=== PATIENT | female | born 1950 | race Two or more races ===

== ENCOUNTER 2017-10-10 09:13 | Emergency (ER) | payer MEDICARE, OTHER ==
--- NOTE | 2017-10-10 09:40 | EDM.PDOC ---
<Ivan Garcia - Last Filed: 10/10/17 09:50> ED HPI GENERAL MEDICAL PROBLEM - General Chief Complaint: Cardiovascular Problem Stated Complaint: HIGH BP Time Seen by Provider: 10/10/17 09:40 Source of Information: Reports: Patient History Limitations: Reports: No Limitations - Related Data Allergies Allergy/AdvReac Type Severity Reaction Status Date / Time No Known Allergies Allergy Verified 10/10/17 09:23 Home Meds: Home Meds Lisinopril 10 mg PO DAILY #30 tablet 10/10/17 [Rx] Past Medical History - Past Surgical History GI Surgical History: Reports: Appendectomy Social & Family History - Tobacco Use Smoking Status *Q: Never Smoker - Recreational Drug Use Recreational Drug Use: No EKG INTERPRETATION EKG Date: 10/10/17 Time: 09:45 Rhythm: NSR Rate (Beats/Min): 72 [place]: Normal P-Wave: Enlarged (Suspect left atrial hypertrophy.) QRS: Other (Early R-wave transition consider right ventricular. The pattern.) ST-T: Normal QT: Prolonged (Mildly prolonged.) EKG Interpretation Comments: Borderline ECG Course - Vital Signs Last Recorded V/S: Last Vital Signs Temp 96.7 F 10/10/17 09:20 Pulse 73 10/10/17 12:55 Resp 16 10/10/17 12:55 BP 170/107 H 10/10/17 13:04 Pulse Ox 98 10/10/17 12:55 - Orders/Labs/Meds Labs: Laboratory Tests 10/10/17 10/10/17 10/10/17 Range/Units 11:10 11:10 12:23 WBC 9.19 (3.98-10.04) K/mm3 RBC 5.57 H (3.98-5.22) M/mm3 Hgb 16.8 H (11.2-15.7) gm/L Hct 50.0 H (34.1-44.9) % MCV 89.8 (79.4-94.8) fl MCH 30.2 (25.6-32.2) pg MCHC 33.6 (32.2-35.5) g/dl RDW Std Deviation 46.7 H (36.4-46.3) fL Plt Count 234 (182-369) K/mm3 MPV 11.1 (9.4-12.3) fl Neut % (Auto) 56.3 (34.0-71.1) % Lymph % (Auto) 36.2 (19.3-51.7) % Cherry % (Auto) 5.1 (4.7-12.5) % Eos % (Auto) 1.4 (0.7-5.8) Baso % (Auto) 0.8 (0.1-1.2) % Neut # (Auto) 5.17 (1.56-6.13) K/mm3 Lymph # (Auto) 3.33 (1.18-3.74) K/mm3 Cherry # (Auto) 0.47 H (0.24-0.36) K/mm3 Eos # (Auto) 0.13 (0.04-0.36) K/mm3 Baso # (Auto) 0.07 (0.01-0.08) K/mm3 Sodium 146 H (136-145) mEq/L Potassium 3.8 (3.5-5.1) mEq/L Chloride 108 H (98-107) mEq/L Carbon Dioxide 28 (21-32) mEq/L Anion Gap 13.8 (5-15) BUN 6 L (7-18) mg/dL Creatinine 0.9 (0.55-1.02) mg/dL Est Cr Clr Drug Dosing 56.08 mL/min Estimated GFR (MDRD) > 60 (>60) mL/min BUN/Creatinine Ratio 6.7 L (14-18) Glucose 90 (80-115) mg/dL Calcium 9.4 (8.5-10.1) mg/dL Total Bilirubin 0.9 (0.2-1.0) mg/dL AST 39 H (15-37) U/L ALT 41 (14-59) U/L Alkaline Phosphatase 142 H (46-116) U/L Troponin I < 0.017 (0.00-0.056) ng/mL Total Protein 8.3 H (6.4-8.2) g/dl Albumin 3.8 (3.4-5.0) g/dl Globulin 4.5 gm/dL Albumin/Globulin Ratio 0.8 L (1-2) TSH 3rd Generation 2.852 (0.358-3.74) uIU/mL Urine Color Yellow (Yellow) Urine Appearance Clear (Clear) Urine pH 7.0 (5.0-8.0) Ur Specific [place] 1.015 (1.005-1.030) Urine Protein Negative (Negative) Urine Glucose (UA) Negative (Negative) Urine Ketones Negative (Negative) Urine Occult Blood Negative (Negative) Urine Nitrite Negative (Negative) Urine Bilirubin Negative (Negative) Urine Urobilinogen 0.2 (0.2-1.0) Ur Leukocyte Esterase Trace H (Negative) Urine RBC 0-5 (0-5) /hpf Urine WBC 0-5 (0-5) /hpf Ur Epithelial Cells 0-5 (0-5) /hpf Urine Bacteria Few (FEW) /hpf Urine Mucus Not seen (FEW) /hpf Meds: Medications Discontinued Medications Generic Name Dose Route Start Last Admin Trade Name Isaias PRN Reason Stop Dose Admin Lisinopril 10 mg 10/11/17 12:26 10/10/17 13:04 Prinivil PO 10/11/17 12:27 10 mg DAILY ONE Administration Departure - Departure Disposition: Home, Self-Care 01 Clinical Impression: HTN (hypertension) Qualifiers: Hypertension type: unspecified Qualified Code(s): I10 - Essential (primary) hypertension Prescriptions: Lisinopril 10 mg PO DAILY #30 tablet Instructions: Hypertension, [id number] Forms: ED Department Discharge Additional Instructions: Establish care with a primary care provider at [facility] in [place]. Call and make an appointment to be seen in the next week for full evaluation. EKG did show some soft findings that suggest you've had hypertension for quite some time. Thus I started you on lisinopril 10 mg every day. Modifications to dosage and/or medications may be required. Lifestyle modifications is required including: Increase intake fruits and vegetables, push the water, decreased intake of processed foods and also the fried foods. Exercise 30 minutes every day which would include walking/light weight lifting. Decrease salt intake and caffeine use. Fasting lipids and additional blood work may be required. In addition treatment for anxiety/depression may be required as well. Return to the ED if you develop any new or worsening symptoms. <Tru Malik O - Last Filed: 10/12/17 18:49> ED HPI GENERAL MEDICAL PROBLEM - General Source of Information: Reports: Patient History Limitations: Reports: No Limitations - History of Present Illness INITIAL COMMENTS - FREE TEXT/NARRATIVE: Patient is a 66 y/o female who presents to the E.D. feeling anxious, fatigued, with generalized weakness with high BP. Patient has no prior past medical hx. She checked bp yesterday and was elevated as well. She had similar episode two months ago. States she has noted resting improves all symptoms. Patient takes care of her grand kids and household duties for the family. She denies CP, SOB , N/V, fever, dysuria, back pain, dizziness, or any additional complaints. She does not smoke, take any medications, alcohol use, or have a PCP locally. ED ROS GENERAL - Review of Systems Review Of Systems: See Below Constitutional: Reports: No Symptoms HEENT: Reports: No Symptoms Respiratory: Reports: No Symptoms Cardiovascular: Reports: No Symptoms GI/Abdominal: Reports: No Symptoms : Reports: No Symptoms Musculoskeletal: Reports: No Symptoms Neurological: Reports: No Symptoms Psychiatric: Reports: Anxiety ED EXAM, GENERAL - Physical Exam Exam: See Below Exam Limited By: No Limitations General Appearance: Alert, WD/WN, Anxious Ears: Hearing Grossly Normal Nose: Normal Inspection Throat/Mouth: Normal Voice, No Airway Compromise Neck: Normal Inspection, Supple Respiratory/Chest: No Respiratory Distress, Lungs Clear, Normal Breath Sounds, No Accessory Muscle Use, Chest Non-Tender Cardiovascular: Normal Peripheral Pulses, Regular Rate, Rhythm, No Murmur Peripheral Pulses: 4+: Radial (L), Radial (R) GI/Abdominal: Normal Bowel Sounds, Soft, Non-Tender, No Organomegaly, No Distention Back Exam: Normal Inspection Extremities: Normal Inspection, Non-Tender, No Pedal Edema, Normal Capillary Refill Neurological: Alert, Oriented, CN II-XII Intact, Normal Cognition, No Motor/ Sensory Deficits Psychiatric: Normal Affect, Normal Mood Skin Exam: Warm, Dry, Intact, Normal Color Course - Orders/Labs/Meds Labs: Laboratory Tests 10/10/17 10/10/17 10/10/17 Range/Units 11:10 11:10 12:23 WBC 9.19 (3.98-10.04) K/mm3 RBC 5.57 H (3.98-5.22) M/mm3 Hgb 16.8 H (11.2-15.7) gm/L Hct 50.0 H (34.1-44.9) % MCV 89.8 (79.4-94.8) fl MCH 30.2 (25.6-32.2) pg MCHC 33.6 (32.2-35.5) g/dl RDW Std Deviation 46.7 H (36.4-46.3) fL Plt Count 234 (182-369) K/mm3 MPV 11.1 (9.4-12.3) fl Neut % (Auto) 56.3 (34.0-71.1) % Lymph % (Auto) 36.2 (19.3-51.7) % Cherry % (Auto) 5.1 (4.7-12.5) % Eos % (Auto) 1.4 (0.7-5.8) Baso % (Auto) 0.8 (0.1-1.2) % Neut # (Auto) 5.17 (1.56-6.13) K/mm3 Lymph # (Auto) 3.33 (1.18-3.74) K/mm3 [place] # (Auto) 0.47 H (0.24-0.36) K/mm3 Eos # (Auto) 0.13 (0.04-0.36) K/mm3 Baso # (Auto) 0.07 (0.01-0.08) K/mm3 Sodium 146 H (136-145) mEq/L Potassium 3.8 (3.5-5.1) mEq/L Chloride 108 H (98-107) mEq/L Carbon Dioxide 28 (21-32) mEq/L Anion Gap 13.8 (5-15) BUN 6 L (7-18) mg/dL Creatinine 0.9 (0.55-1.02) mg/dL Est Cr Clr Drug Dosing 56.08 mL/min Estimated GFR (MDRD) > 60 (>60) mL/min BUN/Creatinine Ratio 6.7 L (14-18) Glucose 90 (80-115) mg/dL Calcium 9.4 (8.5-10.1) mg/dL Total Bilirubin 0.9 (0.2-1.0) mg/dL AST 39 H (15-37) U/L ALT 41 (14-59) U/L Alkaline Phosphatase 142 H (46-116) U/L Troponin I < 0.017 (0.00-0.056) ng/mL Total Protein 8.3 H (6.4-8.2) g/dl Albumin 3.8 (3.4-5.0) g/dl Globulin 4.5 gm/dL Albumin/Globulin Ratio 0.8 L (1-2) TSH 3rd Generation 2.852 (0.358-3.74) uIU/mL Urine Color Yellow (Yellow) Urine Appearance Clear (Clear) Urine pH 7.0 (5.0-8.0) Ur Specific [place] 1.015 (1.005-1.030) Urine Protein Negative (Negative) Urine Glucose (UA) Negative (Negative) Urine Ketones Negative (Negative) Urine Occult Blood Negative (Negative) Urine Nitrite Negative (Negative) Urine Bilirubin Negative (Negative) Urine Urobilinogen 0.2 (0.2-1.0) Ur Leukocyte Esterase Trace H (Negative) Urine RBC 0-5 (0-5) /hpf Urine WBC 0-5 (0-5) /hpf Ur Epithelial Cells 0-5 (0-5) /hpf Urine Bacteria Few (FEW) /hpf Urine Mucus Not seen (FEW) /hpf Meds: Medications Discontinued Medications Generic Name Dose Route Start Last Admin Trade Name Freq PRN Reason Stop Dose Admin Lisinopril 10 mg 10/11/17 12:26 10/10/17 13:04 Prinivil PO 10/11/17 12:27 10 mg DAILY ONE Administration - Re-Assessments/Exams Free Text/Narrative Re-Assessment/Exam: I evaluated the patient at 1028. Attending ED provider was not able to see the patient prior. She was in the ER approx hour and a half prior to evaluation. EKG was obtained revealing sinus rhythm with early R-wave transition. Suggesting right ventricular hypertrophy, septal hypertrophy, left atrial hypertrophy, and QT mildly prolonged. No acute ST changes noted. Will obtain basic labs including CBC, chem 14, troponin, TSH, UA, and chest x- ray one view. Chest x-ray reveals slight cardiomegaly. No acute findings noted. Tortuous aorta. Final interpretation is pending. 10/10/17 12:33 Labs reviewed: Sodium 146, potassium 3.8, creatinine 0.9, AG 13.8 , AST mildly elevated at 39, alk phosphatase 142 which is elevated, troponin less than 0.017, TSH 2.85, white blood cell count normal, hemoglobin 16.8, platelet count 234. Patient has not provided a urine sample. Will go ahead and treat the patient for uncontrolled blood pressure. Blood pressures 157/123. Heart rate remains normal. Will start lisinopril 10 mg by mouth every day. She'll see her PCP in the next week or 2 for reevaluation. Suspect patient may have some anxiety and that would require treatment as well. Departure - Departure Time of Disposition: 12:34 Condition: Good
--- NOTE | 2017-10-10 12:17 | CR ---
Chest: Portable view of the chest was obtained. Comparison: No previous study. Heart is enlarged. Tortuous thoracic aorta is seen. Lungs are clear. Scoliosis is present within the spine. Impression: 1. Findings as noted above. Nothing acute is identified. Diagnostic code #2
[2017-10-11] MEDS ORDERED: Lisinopril 10 MG Tab PO ONE (12:26)
== END 2017-10-10 13:00 | disposition home or self-care (01) ==
LOC: JD.ED 09:13
DX: I10 Essential (primary) hypertension (principal); I51.7 Cardiomegaly
CPT/HCPCS: 36415; 71045; 80053; 81001; 84443; 84484; 85025; 93005; 99284; A9270; 99283

== ENCOUNTER 2020-05-31 01:01 | Inpatient (IN) | payer MEDICARE, SELFPAY ==
[2020-05-31] MEDS ORDERED: Sodium Chloride 0.9% 1,000 ML IV ONE (01:11)
--- NOTE | 2020-05-31 01:38 | EDM.PDOC ---
ED HPI GENERAL MEDICAL PROBLEM - General Chief Complaint: Syncope Stated Complaint: [facility] Time Seen by Provider: 05/31/20 01:14 Source of Information: Reports: Patient History Limitations: Reports: Language Barrier (iPad oral communication instructor used) - History of Present Illness INITIAL COMMENTS - FREE TEXT/NARRATIVE: Ms. Morin is a very pleasant 69-year-old woman who is now brought to the ED by EMS after suffering a syncopal episode. According to the patient, she had to urinate. She went to the bathroom, and when she finished, she stood up, and then the next thing she knew, she was on the floor. Her daughter discovered her. She states that she is uninjured, and has no pain, anywhere. She denies feeling lightheaded recently, and denies recent chest pain, dyspnea, or palpitations. The patient states that she vomited 3 days ago, and then was seen at the walk-in clinic yesterday, due to generalized body aches and pains, as well as a [id number] sensation in her groin. She states that a chest x-ray and a test for the SARS-CoV-2 virus were performed, but no blood work or urinalysis. She states that she was told that her chest x-ray was unremarkable, but that she was not told the results of her SARS-CoV-2 virus test. She states that she was told that she has some sort of a whole-body infection, and was prescribed azithromycin. She states that she took 1 dose yesterday, but none today. Here in the ED, the patient's initial BP was found to be depressed at 90/55 with a HR normal at 61 bpm. She is afebrile, saturating 94% on room air. Shortly after arrival, however, her BP decreased to 79/56 with a HR of 62 bpm. Reviewing the patient's medications, I see that she is on lisinopril/HCTZ, but no calcium channel sommer or beta-sommer that would prevent a tachycardic response. The patient states that it is not possible that she took an extra dose of her BP medication. The patient's PCP is KEVIN Clifton. - Related Data Allergies Allergy/AdvReac Type Severity Reaction Status Date / Time levofloxacin [From Levaquin] Allergy Itching Verified 05/31/20 08:48 azithromycin AdvReac Hypotension Verified 05/31/20 11:14 Home Meds: Home Meds atorvaSTATin [Lipitor] 40 mg PO DAILY 05/06/19 [History] Lisinopril/Hydrochlorothiazide [Lisinopril-Hctz 20-12.5 mg Tab] 1 each PO DAILY #0 05/10/19 [Rx] Azithromycin 250 mg PO ASDIRECTED 05/31/20 [History] metFORMIN [Glucophage] 500 mg PO DAILY 05/31/20 [History] Past Medical History Cardiovascular History: Reports: High Cholesterol, Hypertension Genitourinary History: Reports: Renal Calculus Endocrine/Metabolic History: Reports: Diabetes, Type II, Obesity/BMI 30+ - Past Surgical History HEENT Surgical History: Reports: Cataract Surgery (bilateral) GI Surgical History: Reports: Cholecystectomy (1994) Female Surgical History: Reports: Other (See Below) (Ureterolith extraction) Social & Family History - Tobacco Use Smoking Status *Q: Former Smoker Years of Tobacco use: 28 Packs/Tins Daily: 0.2 Month/Year Tobacco Last Used: Quit 2009 - Caffeine Use Caffeine Use: Reports: None - Alcohol Use Alcohol Use History: No - Recreational Drug Use Recreational Drug Use: No - Living Situation & Occupation Living situation: Reports: , with Family (Son + 3 grandkids) Occupation: Retired ED ROS GENERAL - Review of Systems Review Of Systems: Comprehensive ROS is negative, except as noted in HPI. - Physical Exam Exam: See Below Exam Limited By: No Limitations General Appearance: Alert, WD/WN, Other (Appears weak/fatigued) Eye Exam: Bilateral Eye: EOMI, Other (s/p cataract surgery. Lt scleral pigmentation.) Ears: Normal External Exam, Normal Canal, Hearing Grossly Normal, Normal TMs Nose: Normal Inspection, Normal Mucosa, No Blood Throat/Mouth: Normal Inspection, Normal Lips, Normal Teeth, Normal Gums, Normal Oropharynx, Normal Voice, No Airway Compromise Head Exam: Atraumatic, Normocephalic Neck: Normal Inspection, Supple, Non-Tender, Full Range of Motion. No: Lymphadenopathy (L), Lymphadenopathy (R) Respiratory/Chest: No Respiratory Distress, Lungs Clear, Normal Breath Sounds, No Accessory Muscle Use Cardiovascular: Normal Peripheral Pulses, Regular Rate, Rhythm, No Edema, No Gallop, No JVD, No Murmur, No Rub GI/Abdominal: Normal Bowel Sounds, Soft, Non-Tender, No Organomegaly, No Distention, No Abnormal Bruit, No Mass (Female) Exam: Deferred Rectal (Female) Exam: Deferred Neuro Exam (Abbreviated): Alert, Oriented, CN II-XII Intact, Normal Cognition, No Motor/Sensory Deficits Back Exam: Normal Inspection, Full Range of Motion, NT Extremities: Normal Inspection, Normal Range of Motion, No Pedal Edema, Normal Capillary Refill Psychiatric: Normal Affect Skin Exam: Warm, Dry, Intact, Normal Color, No Rash ED CENTRAL LINE INSERTION - Central Line Insertion Central Line Indication: IV access, medication administration (Dopamine, KCl) Site: subclavian (L) Prep: CDC/MBT Guidelines, Sterile Drapes, Chlorhexidine Lumen: triple Gauge: 7Fr Local Anesthesia - Lidocaine (Xylocaine): 1% Plain Local Anesthetic Volume: 2cc Ultrasound guided: No Guidewire and dilator removed intact: Yes Micropuncture kit used: No Complications: No Secured with suture: Yes Post placement confirmation: CXR, all ports aspirated, all ports flushed CXR post-procedure: no pneumothorax, no hemothorax Dressing applied: by provider, op-site dressing EKG INTERPRETATION EKG Date: 05/31/20 Time: 01:38 Rhythm: Other (Sinus bradycardia) Rate (Beats/Min): 59 Campbell: Normal P-Wave: Present QRS: Normal (Early transition) ST-T: Normal QT: Normal Comparison: No Change (10/10/2017) Course - Vital Signs Last Recorded V/S: Last Vital Signs Temp 37.9 C 06/01/20 16:54 Pulse 85 06/01/20 16:00 Resp 22 H 06/01/20 19:40 BP 146/81 H 06/01/20 16:26 Pulse Ox 89 L 06/01/20 20:00 - Orders/Labs/Meds Orders: Medication Orders Acetaminophen (Tylenol) 650 mg PO Q4H PRN PRN Reason: Fever Last Admin: 06/01/20 16:54 Dose: 650 mg Documented by: Admin: 06/01/20 09:26 Dose: 650 mg Documented by: USMAN Dextrose/Water (Dextrose 50% In Water) 50 ml IVPUSH ASDIRECTED PRN PRN Reason: Hypoglycemia Enoxaparin Sodium (Lovenox) 40 mg SUBCUT DAILY [facility] Last Admin: 06/01/20 08:42 Dose: 40 mg Documented by: USMAN Hydralazine HCl (Apresoline) 10 mg IVPUSH Q2H PRN PRN Reason: Hypertension Rosuvastatin Calcium (Crestor) 10 mg PO DAILY [facility] Last Admin: 06/01/20 08:42 Dose: 10 mg Documented by: USMAN Labs: Laboratory Tests 05/31/20 05/31/20 05/31/20 Range/Units 01:45 01:55 02:08 WBC 4.48 (3.98-10.04) K/mm3 RBC 4.44 (3.98-5.22) M/mm3 Hgb 13.2 (11.2-15.7) gm/dl Hct 40.0 (34.1-44.9) % MCV 90.1 (79.4-94.8) fl MCH 29.7 (25.6-32.2) pg MCHC 33.0 (32.2-35.5) g/dl RDW Std Deviation 45.7 (36.4-46.3) fL Plt Count 126 L D (182-369) K/mm3 MPV 12.4 H (9.4-12.3) fl Neutrophils % (Manual) 54 (40-60) % Band Neutrophils % 14 H (0-10) % Lymphocytes % (Manual) 27 (20-40) % Atypical Lymphs % 0 % Monocytes % (Manual) 5 (2-10) % Eosinophils % (Manual) 0 L (0.7-5.8) % Basophils % (Manual) 0 L (0.1-1.2) Platelet Estimate Decreased Plt Morphology Comment Normal RBC Morph Comment Normal PT (9.7-11.7) SECONDS INR APTT (22-31) SECONDS D-Dimer, Quantitative (0.19-0.50) mg/L Puncture Site Lt radial ABG pH 7.35 (7.35-7.45) ABG pCO2 46.1 H (35.0-45.0) mmHg ABG pO2 95.0 (80.0-100.0) mmHg ABG HCO3 25.0 (22.0-26.0) meq/L ABG O2 Saturation 96.4 (96.0-97.0) % ABG Base Excess -0.3 (-2-2.0) Dusty Test Positive O2 Delivery Device Room air Sodium (136-145) mEq/L Potassium (3.5-5.1) mEq/L Chloride (98-107) mEq/L Carbon Dioxide (21-32) mEq/L Anion Gap (5-15) BUN (7-18) mg/dL Creatinine (0.55-1.02) mg/dL Est Cr Clr Drug Dosing Estimated GFR (MDRD) (>60) mL/min BUN/Creatinine Ratio (14-18) Glucose (80-115) mg/dL Hemoglobin A1c (4.50-6.20) % Lactic Acid (0.4-2.0) mmol/L Calcium (8.5-10.1) mg/dL Magnesium (1.8-2.4) mg/dl Total Bilirubin (0.2-1.0) mg/dL AST (15-37) U/L ALT (14-59) U/L Alkaline Phosphatase (46-116) U/L Troponin I (0.00-0.056) ng/mL NT-Pro-B Natriuret Pep (0-125) pg/mL Total Protein (6.4-8.2) g/dl Albumin (3.4-5.0) g/dl Globulin gm/dL Albumin/Globulin Ratio (1-2) TSH 3rd Generation (0.358-3.74) uIU/mL Urine Color (Yellow) Urine Appearance (Clear) Urine pH (5.0-8.0) Ur Specific [place] (1.005-1.030) Urine Protein (Negative) Urine Glucose (UA) (Negative) Urine Ketones (Negative) Urine Occult Blood (Negative) Urine Nitrite (Negative) Urine Bilirubin (Negative) Urine Urobilinogen (0.2-1.0) Ur Leukocyte Esterase (Negative) U Hyaline Cast (Auto) (0-5) /lpf Urine RBC (0-5) /hpf Urine WBC (0-5) /hpf Ur Epithelial Cells (0-5) /hpf Urine Bacteria (FEW) /hpf Urine Mucus (FEW) /hpf SARS Virus RNA (PCR) Positive H (NEGATIVE) 05/31/20 05/31/20 05/31/20 Range/Units 02:08 02:08 02:08 WBC (3.98-10.04) K/mm3 RBC (3.98-5.22) M/mm3 Hgb (11.2-15.7) gm/dl Hct (34.1-44.9) % MCV (79.4-94.8) fl MCH (25.6-32.2) pg MCHC (32.2-35.5) g/dl RDW Std Deviation (36.4-46.3) fL Plt Count (182-369) K/mm3 MPV (9.4-12.3) fl Neutrophils % (Manual) (40-60) % Band Neutrophils % (0-10) % Lymphocytes % (Manual) (20-40) % Atypical Lymphs % % Monocytes % (Manual) (2-10) % Eosinophils % (Manual) (0.7-5.8) % Basophils % (Manual) (0.1-1.2) Platelet Estimate Plt Morphology Comment RBC Morph Comment PT 11.1 (9.7-11.7) SECONDS INR 1.04 APTT 31 (22-31) SECONDS D-Dimer, Quantitative < 0.19 L (0.19-0.50) mg/L Puncture Site ABG pH (7.35-7.45) ABG pCO2 (35.0-45.0) mmHg ABG pO2 (80.0-100.0) mmHg ABG HCO3 (22.0-26.0) meq/L ABG O2 Saturation (96.0-97.0) % ABG Base Excess (-2-2.0) Dusty Test O2 Delivery Device Sodium 138 (136-145) mEq/L Potassium 2.6 L D (3.5-5.1) mEq/L Chloride 99 (98-107) mEq/L Carbon Dioxide 26 (21-32) mEq/L Anion Gap 15.6 H (5-15) BUN 15 (7-18) mg/dL Creatinine 1.6 H (0.55-1.02) mg/dL Est Cr Clr Drug Dosing TNP Estimated GFR (MDRD) 32 (>60) mL/min BUN/Creatinine Ratio 9.4 L (14-18) Glucose 104 (80-115) mg/dL Hemoglobin A1c (4.50-6.20) % Lactic Acid (0.4-2.0) mmol/L Calcium 7.9 L (8.5-10.1) mg/dL Magnesium 2.0 (1.8-2.4) mg/dl Total Bilirubin 0.6 (0.2-1.0) mg/dL AST 29 (15-37) U/L ALT 21 (14-59) U/L Alkaline Phosphatase 81 (46-116) U/L Troponin I < 0.017 (0.00-0.056) ng/mL NT-Pro-B Natriuret Pep 220 H (0-125) pg/mL Total Protein 6.6 (6.4-8.2) g/dl Albumin 3.1 L (3.4-5.0) g/dl Globulin 3.5 gm/dL Albumin/Globulin Ratio 0.9 L (1-2) TSH 3rd Generation (0.358-3.74) uIU/mL Urine Color (Yellow) Urine Appearance (Clear) Urine pH (5.0-8.0) Ur Specific [place] (1.005-1.030) Urine Protein (Negative) Urine Glucose (UA) (Negative) Urine Ketones (Negative) Urine Occult Blood (Negative) Urine Nitrite (Negative) Urine Bilirubin (Negative) Urine Urobilinogen (0.2-1.0) Ur Leukocyte Esterase (Negative) U Hyaline Cast (Auto) (0-5) /lpf Urine RBC (0-5) /hpf Urine WBC (0-5) /hpf Ur Epithelial Cells (0-5) /hpf Urine Bacteria (FEW) /hpf Urine Mucus (FEW) /hpf SARS Virus RNA (PCR) (NEGATIVE) 05/31/20 05/31/20 05/31/20 Range/Units 02:08 02:08 02:08 WBC (3.98-10.04) K/mm3 RBC (3.98-5.22) M/mm3 Hgb (11.2-15.7) gm/dl Hct (34.1-44.9) % MCV (79.4-94.8) fl MCH (25.6-32.2) pg MCHC (32.2-35.5) g/dl RDW Std Deviation (36.4-46.3) fL Plt Count (182-369) K/mm3 MPV (9.4-12.3) fl Neutrophils % (Manual) (40-60) % Band Neutrophils % (0-10) % Lymphocytes % (Manual) (20-40) % Atypical Lymphs % % Monocytes % (Manual) (2-10) % Eosinophils % (Manual) (0.7-5.8) % Basophils % (Manual) (0.1-1.2) Platelet Estimate Plt Morphology Comment RBC Morph Comment PT (9.7-11.7) SECONDS INR APTT (22-31) SECONDS D-Dimer, Quantitative (0.19-0.50) mg/L Puncture Site ABG pH (7.35-7.45) ABG pCO2 (35.0-45.0) mmHg ABG pO2 (80.0-100.0) mmHg ABG HCO3 (22.0-26.0) meq/L ABG O2 Saturation (96.0-97.0) % ABG Base Excess (-2-2.0) Dusty Test O2 Delivery Device Sodium (136-145) mEq/L Potassium (3.5-5.1) mEq/L Chloride (98-107) mEq/L Carbon Dioxide (21-32) mEq/L Anion Gap (5-15) BUN (7-18) mg/dL Creatinine (0.55-1.02) mg/dL Est Cr Clr Drug Dosing Estimated GFR (MDRD) (>60) mL/min BUN/Creatinine Ratio (14-18) Glucose (80-115) mg/dL Hemoglobin A1c 6.00 (4.50-6.20) % Lactic Acid 1.3 (0.4-2.0) mmol/L Calcium (8.5-10.1) mg/dL Magnesium (1.8-2.4) mg/dl Total Bilirubin (0.2-1.0) mg/dL AST (15-37) U/L ALT (14-59) U/L Alkaline Phosphatase (46-116) U/L Troponin I (0.00-0.056) ng/mL NT-Pro-B Natriuret Pep (0-125) pg/mL Total Protein (6.4-8.2) g/dl Albumin (3.4-5.0) g/dl Globulin gm/dL Albumin/Globulin Ratio (1-2) TSH 3rd Generation 4.849 H (0.358-3.74) uIU/mL Urine Color (Yellow) Urine Appearance (Clear) Urine pH (5.0-8.0) Ur Specific [place] (1.005-1.030) Urine Protein (Negative) Urine Glucose (UA) (Negative) Urine Ketones (Negative) Urine Occult Blood (Negative) Urine Nitrite (Negative) Urine Bilirubin (Negative) Urine Urobilinogen (0.2-1.0) Ur Leukocyte Esterase (Negative) U Hyaline Cast (Auto) (0-5) /lpf Urine RBC (0-5) /hpf Urine WBC (0-5) /hpf Ur Epithelial Cells (0-5) /hpf Urine Bacteria (FEW) /hpf Urine Mucus (FEW) /hpf SARS Virus RNA (PCR) (NEGATIVE) 05/31/20 05/31/20 Range/Units 04:20 05:00 WBC (3.98-10.04) K/mm3 RBC (3.98-5.22) M/mm3 Hgb (11.2-15.7) gm/dl Hct (34.1-44.9) % MCV (79.4-94.8) fl MCH (25.6-32.2) pg MCHC (32.2-35.5) g/dl RDW Std Deviation (36.4-46.3) fL Plt Count (182-369) K/mm3 MPV (9.4-12.3) fl Neutrophils % (Manual) (40-60) % Band Neutrophils % (0-10) % Lymphocytes % (Manual) (20-40) % Atypical Lymphs % % Monocytes % (Manual) (2-10) % Eosinophils % (Manual) (0.7-5.8) % Basophils % (Manual) (0.1-1.2) Platelet Estimate Plt Morphology Comment RBC Morph Comment PT (9.7-11.7) SECONDS INR APTT (22-31) SECONDS D-Dimer, Quantitative (0.19-0.50) mg/L Puncture Site ABG pH (7.35-7.45) ABG pCO2 (35.0-45.0) mmHg ABG pO2 (80.0-100.0) mmHg ABG HCO3 (22.0-26.0) meq/L ABG O2 Saturation (96.0-97.0) % ABG Base Excess (-2-2.0) Dusty Test O2 Delivery Device Sodium (136-145) mEq/L Potassium (3.5-5.1) mEq/L Chloride (98-107) mEq/L Carbon Dioxide (21-32) mEq/L Anion Gap (5-15) BUN (7-18) mg/dL Creatinine (0.55-1.02) mg/dL Est Cr Clr Drug Dosing Estimated GFR (MDRD) (>60) mL/min BUN/Creatinine Ratio (14-18) Glucose (80-115) mg/dL Hemoglobin A1c (4.50-6.20) % Lactic Acid (0.4-2.0) mmol/L Calcium (8.5-10.1) mg/dL Magnesium (1.8-2.4) mg/dl Total Bilirubin (0.2-1.0) mg/dL AST (15-37) U/L ALT (14-59) U/L Alkaline Phosphatase (46-116) U/L Troponin I < 0.017 (0.00-0.056) ng/mL NT-Pro-B Natriuret Pep (0-125) pg/mL Total Protein (6.4-8.2) g/dl Albumin (3.4-5.0) g/dl Globulin gm/dL Albumin/Globulin Ratio (1-2) TSH 3rd Generation (0.358-3.74) uIU/mL Urine Color Light yellow (Yellow) Urine Appearance Clear (Clear) Urine pH 6.0 (5.0-8.0) Ur Specific [place] 1.015 (1.005-1.030) Urine Protein Negative (Negative) Urine Glucose (UA) Negative (Negative) Urine Ketones Negative (Negative) Urine Occult Blood Negative (Negative) Urine Nitrite Negative (Negative) Urine Bilirubin Negative (Negative) Urine Urobilinogen 0.2 (0.2-1.0) Ur Leukocyte Esterase Negative (Negative) U Hyaline Cast (Auto) 0-5 (0-5) /lpf Urine RBC 0-5 (0-5) /hpf Urine WBC 0-5 (0-5) /hpf Ur Epithelial Cells 0-5 (0-5) /hpf Urine Bacteria Few (FEW) /hpf Urine Mucus Few (FEW) /hpf SARS Virus RNA (PCR) (NEGATIVE) Meds: Medications Generic Name Dose Route Start Last Admin Trade Name Freq PRN Reason Stop Dose Admin Acetaminophen 650 mg 06/01/20 09:05 06/01/20 16:54 Tylenol PO 650 mg Q4H PRN Administration Fever Dextrose/Water 50 ml 06/01/20 16:34 Dextrose 50% In Water IVPUSH ASDIRECTED PRN Hypoglycemia Enoxaparin Sodium 40 mg 06/01/20 09:00 06/01/20 08:42 Lovenox SUBCUT 40 mg DAILY MARGARITO Administration Hydralazine HCl 10 mg 06/01/20 16:34 Apresoline IVPUSH Q2H PRN Hypertension Rosuvastatin Calcium 10 mg 06/01/20 09:00 06/01/20 08:42 Crestor PO 10 mg DAILY MARGARITO Administration Discontinued Medications Generic Name Dose Route Start Last Admin Trade Name Freq PRN Reason Stop Dose Admin Dextrose/Water 50 ml 05/31/20 10:01 Dextrose 50% In Water IVPUSH ASDIRECTED PRN Hypoglycemia Sodium Chloride 1,000 mls @ 999 mls/hr 05/31/20 01:11 05/31/20 01:12 Normal Saline IV 05/31/20 02:11 999 mls/hr ONETIME ONE Administration Dopamine HCl/Dextrose 400 mg in 250 mls @ 28.125 mls/hr 05/31/20 02:30 05/31/20 02:35 Dopamine In D5w 400 Mg/250 Ml IV 10 mcg/kg/min TITRATE MARGARITO 28.125 mls/hr Administration Protocol 10 MCG/KG/MIN Dopamine HCl/Dextrose 400 mg in 250 mls @ 56.25 mls/hr 05/31/20 03:00 05/31/20 03:09 Dopamine In D5w 400 Mg/250 Ml IV 20 mcg/kg/min TITRATE MARGARITO 56.25 mls/hr Administration Protocol 20 MCG/KG/MIN Potassium Chloride 10 meq/ 100 mls @ 100 mls/hr 05/31/20 03:15 05/31/20 08:49 Premix IV 05/31/20 09:14 Not Given Q1H MARGARITO Dopamine HCl/Dextrose 400 mg in 250 mls @ 42.188 mls/hr 05/31/20 03:15 05/31/20 03:22 Dopamine In D5w 400 Mg/250 Ml IV 15 mcg/kg/min TITRATE MARGARITO 42.188 mls/hr Administration Protocol 15 MCG/KG/MIN Sodium Chloride 1,000 mls @ 75 mls/hr 05/31/20 03:30 09/09/20 03:29 Normal Saline IV 75 mls/hr ASDIRECTED MARGARITO Administration Norepinephrine Bitartrate 4 mg 250 mls @ 26.25 mls/hr 05/31/20 06:00 05/31/20 08:46 / Dextrose/Water IV 0 mcg/min TITRATE MARGARITO 0 mls/hr Titration Protocol 7 MCG/MIN Insulin Human Lispro 0 unit 05/31/20 11:00 06/01/20 13:39 Humalog SUBCUT Not Given QIDACANDBED MARGARITO Protocol Ondansetron HCl 4 mg 05/31/20 03:08 05/31/20 03:13 Zofran IVPUSH 05/31/20 03:09 4 mg ONETIME ONE Administration Potassium Chloride 40 meq 05/31/20 17:00 05/31/20 17:37 Klor-Con M20 PO 05/31/20 17:01 40 meq ONETIME ONE Administration - Re-Assessments/Exams Free Text/Narrative Re-Assessment/Exam: 05/31/20 01:33 As above, the patient suffered a syncopal episode after getting up from urinating. She is uninjured, however, she was hypotensive without tachycardia upon arrival, and has became even more hypotensive. Her physical exam, including her neurologic exam, is unremarkable. She is receiving an IV fluid bolus at present. She reports vomiting 3 days ago, and she was prescribed a Z- Selvin from the walk-in clinic yesterday, after presenting for generalized aches and pains, with tingling and numbness in her groin. She states that she took only 1 dose, yesterday, and none today. I have ordered a work-up that includes blood work, an ABG, 2 sets of blood cultures, a urinalysis by quick catheter, a chest x-ray, an ECG, and a swab for the SARS-CoV-2 virus. 05/31/20 02:06 Portable chest radiograph reviewed. There is mild cardiomegaly, but no pulmonary vascular congestion or pleural effusions to suggest decompensated CHF. Tortuous aorta. No focal infiltrate. No pneumothorax. Thoracic scoliosis noted. Formal read per the Radiologist pending. The patient's ABG represents an acute (uncompensated) primary respiratory acidosis. 05/31/20 02:19 Notified by Jennifer DANIEL that the first liter of IV fluid has finished infusing. Her BP is still depressed at 77/59, with a HR of 57 bpm. Due to the cardiomegaly on her chest x-ray, however, I am concerned that the patient may have a history of CHF, and I am therefore reluctant to infuse too much IV fluid. I will therefore start her on a dopamine drip at 10 mcg/kg/min. 05/31/20 02:31 Notified by Radha DANIEL that the test for the SARS-CoV-2 virus has returned positive. Having COVID-19, we will now need to be even more judicious with IV fluid. 05/31/20 02:59 Despite being on dopamine at 10 mcg/kg/min, the patient's BP is still 72/46 with a HR of 44 bpm. I am concerned that the patient may be developing a heart block. Because of the patient being on dopamine, I had earlier spoken to her, with the assistance of a multi mission helicopter aircrewman, about receiving a central line, with my initial plan of placing a left subclavian triple-lumen catheter, or, if unsuccessful, a right IJ, or, if unsuccessful, a femoral vein line. The patient was agreeable, and has signed a consent. Given her worsening hypotension and bradycardia despite dopamine, however, I think it would be best if I were to place a right IJ Cordis through which a PA catheter and transvenous pacer could be introduced. In the meantime, I have ordered an increase in the patient's dopamine to 20 mcg/kg/min. 05/31/20 03:08 Notified by Ebony DANIEL that the patient was vomiting a few minutes ago. I have ordered 4 mg of IV Zofran. 05/31/20 03:10 The patient's BP is now up to 141/90, with a HR of 83 bpm. I am not sure if it was the vomiting, or the increase in dopamine which precipitated the improvement. The patient's CBC is remarkable for platelets depressed at 126,000, and is otherwise unremarkable. Her CMP is remarkable for a potassium depressed at 2.6, and an anion gap mildly elevated at 15.6, but with a bicarbonate normal at 26. Her Cr is elevated at 1.6, with a BUN normal at 15, and the remainder of her CMP being unremarkable. Her magnesium level is within normal limits at 2.0. Her lactic acid level is within normal limits at 1.3. Her troponin is undetectably low. Her D-dimer is undetectably low. Her coags are within normal limits. The patient's BNP is still pending. A urine sample for urinalysis has not yet been collected. Based on the above, I have ordered KCl 10 mEq IV x 4 to be given. Once a central line is in place, the KCl can be given at 20 mEq/hr. 05/31/20 03:14 The patient's BP is now up to 173/97, with a HR of 96 bpm. I have therefore ordered the dopamine to be decreased to 15 mcg/kg/min. I have also ordered a repeat ECG. 05/31/20 03:43 With the dopamine drip at 15 mcg/kg/min, the patient's BP is now 140/80, with a HR of 108 bpm. I will have the patient's nurse titrate the drip down as tolerated. Her repeat ECG, obtained at 03:16, demonstrates a normal sinus rhythm at 96 bpm. There may be right atrial enlargement. No AV block. There is less than [address] depression in V2V6, but without T wave inversion. There is early transition. There is right axis deviation, but no LVH or RVH. No intraventricular conduction delays. The QTc is prolonged at 531 ms. Because of the improvement in the patient's dynamics, I believe we can forego the Cordis at present and continue with the initial plan of a left subclavian central line. I have ordered a repeat troponin, that we can draw off of the central line blood. 05/31/20 04:00 The patient's BNP is modestly elevated at 220. A urine sample has not yet been collected. 05/31/20 04:59 After a sterile field was established with chlorhexidine and a sterile drape, the area inferior to the left clavicle was locally anesthetized with an infiltrate of 1% lidocaine. A 7 English 3-lumen central line catheter was then placed using the Seldinger technique, with good draw and flush on each of the 3 lumens. The central line was secured with suture at 19 cm, then dressed with Tegaderm with a Biogel. The dressing was dated by Jennifer DANIEL. The patient tolerated the procedure very well. A post-procedure portable chest x-ray has been ordered. The repeat troponin will be drawn off of the central line. 05/31/20 05:34 Post-procedure portable chest x-ray demonstrates the left subclavian central line tip at the junction of the SVC and RA. No pneumothorax. No visible hemothorax. Bilateral lung opacity appears to be increased since the prior portable chest x-ray. Formal read per the Radiologist pending. The patient's urinalysis is unremarkable. 05/31/20 05:50 I spoke at length with the patient's daughter and son in the ED waiting room. The patient's daughter lives in the [facility], but came down recently to help her mother, because she has not been feeling well. She confirmed that the patient was taken to the walk-in clinic yesterday, but first underwent a drive- through COVID testing. They were told that the results would take about 3 or 4 days. They then went to the walk-in clinic and were told that the patient had pneumonia, which is why she was prescribed the azithromycin. The patient's repeat troponin is still undetectably low. 05/31/20 05:57 At present, the patient's BP is 104/71, but she is tachycardic at 122 bpm. I would like to decrease the dopamine, in order to decrease her tachycardia, however, her BP would likely drop too low, therefore I have ordered norepinephrine to be started at 7 mcg/min. As her BP rises, Jennifer DANIEL can decrease the dopamine fairly quickly, then titrate both to arrive at a satisfactory BP and HR. 05/31/20 06:[address] Dozier. He accepted the patient for admission to the ICU. Departure - Departure Time of Disposition: 06:39 Disposition: Admitted As Inpatient 67 Condition: Fair Clinical Impression: COVID-19, Hypotension, Hypokalemia - Discharge Information *PRESCRIPTION DRUG MONITORING PROGRAM REVIEWED*: Not Applicable *COPY OF PRESCRIPTION DRUG MONITORING REPORT IN PATIENT ISI: Not Applicable Sepsis Event Note (ED) - Evaluation Sepsis Screening Result: No Definite Risk
[2020-05-31] MEDS ORDERED: DOPamine/Dextrose 5%-Water 400 MG/250 ML BAG IV SCH ×3 (02:30→03:15)
[2020-05-31] MEDS ORDERED: Ondansetron 4 MG/2 ML SDV IVPUSH ONE (03:08)
[2020-05-31] MEDS: Potassium Chloride 10 MEQ in Premix Bag 1 BAG IV SCH ×5 (03:29→08:49)
[2020-05-31] MEDS ORDERED: Sodium Chloride 0.9% 1,000 ML IV SCH (03:30)
[2020-05-31] MEDS ORDERED: Norepinephrine 4 MG in Dextrose 5% in Water 246 ML IV SCH ×2 (06:00)
--- NOTE | 2020-05-31 06:22 | CR ---
Chest: Portable view of the chest was obtained. Comparison: Prior chest x-ray of 10/10/17. Heart is slightly enlarged. Tortuous thoracic aorta is seen. Lungs are clear with no acute parenchymal change. Scoliosis is noted within the spine. No acute osseous finding is seen. Impression: 1. Findings as noted above. 2. Nothing acute is seen. Diagnostic code #2 This report was dictated in MDT
--- NOTE | 2020-05-31 06:37 | CR ---
Chest: Portable view of the chest was obtained. Comparison: Prior chest x-ray performed earlier on the same day (1:21 AM). Heart is slightly enlarged. Tortuous thoracic aorta is seen. Lungs are clear with no acute parenchymal change. Left-sided subclavian line is seen. Tip lies within the superior vena cava. No pneumothorax is seen. Impression: 1. Left subclavian catheter with tip located within the superior vena cava. 2. Nothing acute is otherwise seen on portable chest x-ray. Diagnostic code #3 This report was dictated in MDT
[2020-05-31] MEDS ORDERED: 50% Dextrose in Water 50 ML Syringe IVPUSH PRN (10:01)
--- NOTE | 2020-05-31 10:02 | PCM.HP.2 ---
H&P History of Present Illness - General Date of Service: 05/31/20 Admit Problem/Dx: Admission Diagnosis/Problem Admission Diagnosis/Problem Hypotension History Limitations: Reports: Language Barrier (Obstetrics Scrub Nurse at bedside) - History of Present Illness Initial Comments - Free Text/Narative: 69-year-old female Tajik-speaking only came to the emergency room after having a syncopal episode. Patient states, through an pound keeper, that she was feeling flushed and feverish last night around 1130 and she got up to go to the bathroom. After urinating she stood up and things became distant and she hit the floor. Patient does not know if she hit her head. Patient denies any headaches or chest pain. Patient's daughter was staying with her last night and heard her fall and came into check on her in the bathroom. Patient remembers hearing her daughter distantly. She was then brought to the emergency room via EMS. Patient denies any pain, shortness of breath, headache, or palpitations. Patient states that she was seen at the clinic a couple days ago secondary to feeling ill with body aches, pain, and vomiting. Patient had a COVID PCR performed that was sent out and a chest x-ray done. Chest x-ray reportedly showed nothing acute and she was started on azithromycin. Patient took her first dose of azithromycin 500 mg at approximately 1500 hours several hours before her syncopal episode. Patient's daughter states she also was given NyQuil the night that she had her syncopal episode. She denies any wheezing, stridor, she was not hypoxic when she got to the emergency department, no hives or rash, no pruritus or flushing, no swollen lips or tongue. In the emergency department her initial blood pressure was 90/35 with a heart rate of 61. Oxygen saturations were 94% on room air. Shortly after arriving to the emergency department her blood pressure decreased to 79/56 with a heart rate of 62. Patient is on lisinopril/hydrochlorothiazide, but has not taken more than normal. She is not on a rate medication including calcium channel sommer or beta-sommer. Patient received 1 L normal saline bolus. Blood pressure did not respond to the initial bolus, therefore patient was placed on dopamine. Blood pressure did improve with dopamine, but she became tachycardic. They switched her to norepinephrine with good control of her blood pressure. Lab work with significant for a potassium of 2.6- troponin x2 normal UA lactic acid of 1.3 WBC of 4.48, platelet count 126, hemoglobin 13.2, essentially normal blood gas, normal INR and PTT, creatinine of 1.6 with estimated GFR of 32 which appears to be chronic, mild anion gap of 15.6 and a slightly elevated BNP of 220. Patient was positive for SARS virus RNA by PCR. Patient was started on IV potassium and did receive 40 mEq in the emergency department. She was brought to the ICU on 2-1/2 mcg/min of norepinephrine and initial blood pressure was 130/86. She was also on 2 L of O2 via nasal cannula and her oxygen saturations were 100%. Both supplemental oxygen and norepinephrine were stopped and vitals remained stable with blood pressure at 1200 hrs. of 111/83, respiratory rate of 18, and SPO2 of 96% with heart rate of 77 and temperature of 98.2. Patient remains asymptomatic. - Related Data Allergies/Adverse Reactions: Allergies Allergy/AdvReac Type Severity Reaction Status Date / Time levofloxacin [From Levaquin] Allergy Itching Verified 05/31/20 08:48 azithromycin AdvReac Hypotension Verified 05/31/20 11:14 Home Medications: Home Meds atorvaSTATin [Lipitor] 40 mg PO DAILY 05/06/19 [History] Lisinopril/Hydrochlorothiazide [Lisinopril-Hctz 20-12.5 mg Tab] 1 each PO DAILY #0 05/10/19 [Rx] Azithromycin 250 mg PO ASDIRECTED 05/31/20 [History] metFORMIN [Glucophage] 500 mg PO DAILY 05/31/20 [History] Past Medical History HEENT History: Reports: Cataract Other HEENT History: bilateral cataracts Cardiovascular History: Reports: High Cholesterol, Hypertension Genitourinary History: Reports: Renal Calculus 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: Endocrine/Metabolic History: Reports: Diabetes, Type II, Obesity/BMI 30+ - Infectious Disease History Infectious Disease History: Reports: Chicken Pox, Novel Coronavirus - Past Surgical History HEENT Surgical History: Reports: Cataract Surgery GI Surgical History: Reports: Appendectomy, Cholecystectomy Female Surgical History: Reports: Other (See Below) Social & Family History - Family History Family Medical History: Noncontributory - Tobacco Use Smoking Status *Q: Former Smoker Years of Tobacco use: 28 Packs/Tins Daily: 0.2 Used Tobacco, but Quit: Yes Month/Year Tobacco Last Used: 1994 - Caffeine Use Caffeine Use: Reports: None - Recreational Drug Use Recreational Drug Use: No - Living Situation & Occupation Living situation: Reports: , with Family (Son + 3 grandkids) Occupation: Retired H&P Review of Systems - Review of Systems: Review Of Systems: Comprehensive ROS is negative, except as noted in HPI. Exam - Exam Exam: See Below - Vital Signs Vital Signs: Last Vital Signs Temp 97.2 F 05/31/20 01:05 Pulse 62 05/31/20 07:59 Resp 16 05/31/20 07:59 BP 113/79 05/31/20 07:59 Pulse Ox 100 05/31/20 07:59 Weight: 79.197 kg - Exam General: Alert, Oriented, 4 HEENT: Conjunctiva Clear, Hearing Intact, Mucosa Moist & [place] Neck: Supple, Trachea Midline, 2 Lungs: Clear to Auscultation, Normal Respiratory Effort Cardiovascular: Regular Rate, Regular Rhythm GI/Abdominal Exam: Normal Bowel Sounds, Soft, Non-Tender, No Organomegaly, No Distention, No Abnormal Bruit, No Mass Back Exam: Normal Inspection Extremities: Normal Inspection, Normal Range of Motion, Non-Tender, No Pedal Edema, Normal Capillary Refill Peripheral Pulses: 2+: Posterior Tibial (L), Posterior Tibial (R), Dorsalis Pedis (L), Dorsalis Pedis (R) Skin: Warm, Dry, Intact Neurological: Cranial Nerves Intact Neuro Extensive - Mental Status: Alert, Oriented x3, Normal Mood/Affect, Normal Cognition, Memory Intact Psychiatric: Alert, Normal Affect, Normal Mood - Patient Data Lab Results Last 24 hrs: Laboratory Results - last 24 hr 05/31/20 05/31/20 05/31/20 Range/Units 01:45 01:55 02:08 WBC 4.48 (3.98-10.04) K/mm3 RBC 4.44 (3.98-5.22) M/mm3 Hgb 13.2 (11.2-15.7) gm/dl Hct 40.0 (34.1-44.9) % MCV 90.1 (79.4-94.8) fl MCH 29.7 (25.6-32.2) pg MCHC 33.0 (32.2-35.5) g/dl RDW Std Deviation 45.7 (36.4-46.3) fL Plt Count 126 L D (182-369) K/mm3 MPV 12.4 H (9.4-12.3) fl Neutrophils % (Manual) 54 (40-60) % Band Neutrophils % 14 H (0-10) % Lymphocytes % (Manual) 27 (20-40) % Atypical Lymphs % 0 % Monocytes % (Manual) 5 (2-10) % Eosinophils % (Manual) 0 L (0.7-5.8) % Basophils % (Manual) 0 L (0.1-1.2) Platelet Estimate Decreased Plt Morphology Comment Normal RBC Morph Comment Normal PT (9.7-11.7) SECONDS INR APTT (22-31) SECONDS D-Dimer, Quantitative (0.19-0.50) mg/L Puncture Site Lt radial ABG pH 7.35 (7.35-7.45) ABG pCO2 46.1 H (35.0-45.0) mmHg ABG pO2 95.0 (80.0-100.0) mmHg ABG HCO3 25.0 (22.0-26.0) meq/L ABG O2 Saturation 96.4 (96.0-97.0) % ABG Base Excess -0.3 (-2-2.0) Dusty Test Positive O2 Delivery Device Room air Sodium (136-145) mEq/L Potassium (3.5-5.1) mEq/L Chloride (98-107) mEq/L Carbon Dioxide (21-32) mEq/L Anion Gap (5-15) BUN (7-18) mg/dL Creatinine (0.55-1.02) mg/dL Est Cr Clr Drug Dosing Estimated GFR (MDRD) (>60) mL/min BUN/Creatinine Ratio (14-18) Glucose (80-115) mg/dL Lactic Acid (0.4-2.0) mmol/L Calcium (8.5-10.1) mg/dL Magnesium (1.8-2.4) mg/dl Total Bilirubin (0.2-1.0) mg/dL AST (15-37) U/L ALT (14-59) U/L Alkaline Phosphatase (46-116) U/L Troponin I (0.00-0.056) ng/mL NT-Pro-B Natriuret Pep (0-125) pg/mL Total Protein (6.4-8.2) g/dl Albumin (3.4-5.0) g/dl Globulin gm/dL Albumin/Globulin Ratio (1-2) Urine Color (Yellow) Urine Appearance (Clear) Urine pH (5.0-8.0) Ur Specific [place] (1.005-1.030) Urine Protein (Negative) Urine Glucose (UA) (Negative) Urine Ketones (Negative) Urine Occult Blood (Negative) Urine Nitrite (Negative) Urine Bilirubin (Negative) Urine Urobilinogen (0.2-1.0) Ur Leukocyte Esterase (Negative) U Hyaline Cast (Auto) (0-5) /lpf Urine RBC (0-5) /hpf Urine WBC (0-5) /hpf Ur Epithelial Cells (0-5) /hpf Urine Bacteria (FEW) /hpf Urine Mucus (FEW) /hpf SARS Virus RNA (PCR) Positive H (NEGATIVE) 05/31/20 05/31/20 05/31/20 Range/Units 02:08 02:08 02:08 WBC (3.98-10.04) K/mm3 RBC (3.98-5.22) M/mm3 Hgb (11.2-15.7) gm/dl Hct (34.1-44.9) % MCV (79.4-94.8) fl MCH (25.6-32.2) pg MCHC (32.2-35.5) g/dl RDW Std Deviation (36.4-46.3) fL Plt Count (182-369) K/mm3 MPV (9.4-12.3) fl Neutrophils % (Manual) (40-60) % Band Neutrophils % (0-10) % Lymphocytes % (Manual) (20-40) % Atypical Lymphs % % Monocytes % (Manual) (2-10) % Eosinophils % (Manual) (0.7-5.8) % Basophils % (Manual) (0.1-1.2) Platelet Estimate Plt Morphology Comment RBC Morph Comment PT 11.1 (9.7-11.7) SECONDS INR 1.04 APTT 31 (22-31) SECONDS D-Dimer, Quantitative < 0.19 L (0.19-0.50) mg/L Puncture Site ABG pH (7.35-7.45) ABG pCO2 (35.0-45.0) mmHg ABG pO2 (80.0-100.0) mmHg ABG HCO3 (22.0-26.0) meq/L ABG O2 Saturation (96.0-97.0) % ABG Base Excess (-2-2.0) Dusty Test O2 Delivery Device Sodium 138 (136-145) mEq/L Potassium 2.6 L D (3.5-5.1) mEq/L Chloride 99 (98-107) mEq/L Carbon Dioxide 26 (21-32) mEq/L Anion Gap 15.6 H (5-15) BUN 15 (7-18) mg/dL Creatinine 1.6 H (0.55-1.02) mg/dL Est Cr Clr Drug Dosing TNP Estimated GFR (MDRD) 32 (>60) mL/min BUN/Creatinine Ratio 9.4 L (14-18) Glucose 104 (80-115) mg/dL Lactic Acid (0.4-2.0) mmol/L Calcium 7.9 L (8.5-10.1) mg/dL Magnesium 2.0 (1.8-2.4) mg/dl Total Bilirubin 0.6 (0.2-1.0) mg/dL AST 29 (15-37) U/L ALT 21 (14-59) U/L Alkaline Phosphatase 81 (46-116) U/L Troponin I < 0.017 (0.00-0.056) ng/mL NT-Pro-B Natriuret Pep 220 H (0-125) pg/mL Total Protein 6.6 (6.4-8.2) g/dl Albumin 3.1 L (3.4-5.0) g/dl Globulin 3.5 gm/dL Albumin/Globulin Ratio 0.9 L (1-2) Urine Color (Yellow) Urine Appearance (Clear) Urine pH (5.0-8.0) Ur Specific [place] (1.005-1.030) Urine Protein (Negative) Urine Glucose (UA) (Negative) Urine Ketones (Negative) Urine Occult Blood (Negative) Urine Nitrite (Negative) Urine Bilirubin (Negative) Urine Urobilinogen (0.2-1.0) Ur Leukocyte Esterase (Negative) U Hyaline Cast (Auto) (0-5) /lpf Urine RBC (0-5) /hpf Urine WBC (0-5) /hpf Ur Epithelial Cells (0-5) /hpf Urine Bacteria (FEW) /hpf Urine Mucus (FEW) /hpf SARS Virus RNA (PCR) (NEGATIVE) 05/31/20 05/31/20 05/31/20 Range/Units 02:08 04:20 05:00 WBC (3.98-10.04) K/mm3 RBC (3.98-5.22) M/mm3 Hgb (11.2-15.7) gm/dl Hct (34.1-44.9) % MCV (79.4-94.8) fl MCH (25.6-32.2) pg MCHC (32.2-35.5) g/dl RDW Std Deviation (36.4-46.3) fL Plt Count (182-369) K/mm3 MPV (9.4-12.3) fl Neutrophils % (Manual) (40-60) % Band Neutrophils % (0-10) % Lymphocytes % (Manual) (20-40) % Atypical Lymphs % % Monocytes % (Manual) (2-10) % Eosinophils % (Manual) (0.7-5.8) % Basophils % (Manual) (0.1-1.2) Platelet Estimate Plt Morphology Comment RBC Morph Comment PT (9.7-11.7) SECONDS INR APTT (22-31) SECONDS D-Dimer, Quantitative (0.19-0.50) mg/L Puncture Site ABG pH (7.35-7.45) ABG pCO2 (35.0-45.0) mmHg ABG pO2 (80.0-100.0) mmHg ABG HCO3 (22.0-26.0) meq/L ABG O2 Saturation (96.0-97.0) % ABG Base Excess (-2-2.0) Dusty Test O2 Delivery Device Sodium (136-145) mEq/L Potassium (3.5-5.1) mEq/L Chloride (98-107) mEq/L Carbon Dioxide (21-32) mEq/L Anion Gap (5-15) BUN (7-18) mg/dL Creatinine (0.55-1.02) mg/dL Est Cr Clr Drug Dosing Estimated GFR (MDRD) (>60) mL/min BUN/Creatinine Ratio (14-18) Glucose (80-115) mg/dL Lactic Acid 1.3 (0.4-2.0) mmol/L Calcium (8.5-10.1) mg/dL Magnesium (1.8-2.4) mg/dl Total Bilirubin (0.2-1.0) mg/dL AST (15-37) U/L ALT (14-59) U/L Alkaline Phosphatase (46-116) U/L Troponin I < 0.017 (0.00-0.056) ng/mL NT-Pro-B Natriuret Pep (0-125) pg/mL Total Protein (6.4-8.2) g/dl Albumin (3.4-5.0) g/dl Globulin gm/dL Albumin/Globulin Ratio (1-2) Urine Color Light yellow (Yellow) Urine Appearance Clear (Clear) Urine pH 6.0 (5.0-8.0) Ur Specific [place] 1.015 (1.005-1.030) Urine Protein Negative (Negative) Urine Glucose (UA) Negative (Negative) Urine Ketones Negative (Negative) Urine Occult Blood Negative (Negative) Urine Nitrite Negative (Negative) Urine Bilirubin Negative (Negative) Urine Urobilinogen 0.2 (0.2-1.0) Ur Leukocyte Esterase Negative (Negative) U Hyaline Cast (Auto) 0-5 (0-5) /lpf Urine RBC 0-5 (0-5) /hpf Urine WBC 0-5 (0-5) /hpf Ur Epithelial Cells 0-5 (0-5) /hpf Urine Bacteria Few (FEW) /hpf Urine Mucus Few (FEW) /hpf SARS Virus RNA (PCR) (NEGATIVE) Result Diagrams: 05/31/20 02:08 05/31/20 02:08 Imaging Impressions Last 24 hrs: Chest x-ray showed no acute findings, no infiltrates, normal mediastinum, normal heart size EKG INTERPRETATION EKG Date: 05/31/20 Time: 01:38 Rhythm: Other (Sinus bradycardia) Rate (Beats/Min): 59 [place]: Normal P-Wave: Present QRS: Normal ST-T: Normal QT: Normal Comparison: No Change (From 10/10/2017) Sepsis Event Note - Evaluation Sepsis Screening Result: No Definite Risk - Focused Exam Vital Signs: Vital Signs Temp Pulse Resp BP Pulse Ox 05/31/20 07:59 62 16 113/79 100 05/31/20 06:41 92 100/65 05/31/20 05:57 122 H 16 104/71 95 05/31/20 05:30 120 H 116/85 96 05/31/20 04:26 105 H 137/70 05/31/20 03:35 105 H 133/80 05/31/20 03:31 109 H 144/87 H 05/31/20 03:25 101 H 145/81 H 97 05/31/20 03:09 72/46 L 05/31/20 01:05 97.2 F 61 16 90/55 L 94 L Problem List Initiated/Reviewed/Updated: Yes Orders Last 24hrs: Active Orders 24 hr Category Date Time Status Patient Status [ADT] Routine ADT 05/31/20 08:15 Active Blood Glucose Check, Bedside [RC] WITHMEALSANDBED Care 05/31/20 10:01 Ordered EKG Documentation Completion [RC] STAT Care 05/31/20 01:29 Active EKG Documentation Completion [RC] STAT Care 05/31/20 03:13 Active Oxygen Therapy [RC] PRN Care 05/31/20 09:55 Ordered Up With Assistance [RC] ASDIRECTED Care 05/31/20 09:55 Ordered VTE/DVT Education [RC] PER UNIT ROUTINE Care 05/31/20 09:55 Ordered Vital Signs [RC] Q4H Care 05/31/20 09:55 Ordered OT Evaluation and Treatment [CONS] Routine Cons 05/31/20 09:55 Ordered PT Evaluation and Treatment [CONS] Routine Cons 05/31/20 09:55 Ordered Consistent Carbohydrate Diet [DIET] Diet 05/31/20 Lunch Ordered C-REACTIVE PROTEIN [CHEM] AM Lab 06/01/20 05:11 Ordered CBC WITH AUTO DIFF [HEME] AM Lab 06/01/20 05:11 Ordered COMPREHENSIVE METABOLIC PN,CMP [CHEM] AM Lab 06/01/20 05:11 Ordered CULTURE BLOOD [BC] Stat Lab 05/31/20 02:08 Received CULTURE BLOOD [BC] Stat Lab 05/31/20 02:16 Received MAGNESIUM [CHEM] AM Lab 06/01/20 05:11 Ordered PHOSPHORUS [CHEM] AM Lab 06/01/20 05:11 Ordered DOPamine/Dextrose 5%-Water [DOPamine in D5W 400 MG/250 Med 05/31/20 03:15 Active ML] 400 mg in 250 ml IV TITRATE Dextrose 50% in Water Med 05/31/20 10:01 Ordered 50 ml IVPUSH ASDIRECTED PRN Enoxaparin [Lovenox] Med 06/01/20 09:00 Ordered 40 mg SUBCUT DAILY Insulin Lispro [HumaLOG] Med 05/31/20 11:00 Ordered See Protocol SUBCUT QIDACANDBED Norepinephrine [Levophed] 4 mg Med 05/31/20 06:00 Active Dextrose 5% in Water 246 ml IV TITRATE Sodium Chloride 0.9% [Normal Saline] 1,000 ml Med 05/31/20 03:30 Active IV ASDIRECTED atorvaSTATin Med 06/01/20 09:00 Ordered 40 mg PO DAILY Blood Culture x2 Reflex Set [OM.PC] Stat Oth 05/31/20 01:29 Ordered Resuscitation Status Routine Resus Stat 05/31/20 09:55 Ordered Medication Orders Enoxaparin Sodium (Lovenox) 40 mg SUBCUT DAILY MARGARITO Dopamine HCl/Dextrose (Dopamine In D5w 400 Mg/250 Ml) 400 mg in 250 mls @ 42.188 mls/hr IV TITRATE MARGARITO; Protocol Last Admin: 05/31/20 03:22 Dose: 15 mcg/kg/min, 42.188 mls/hr Documented by: KATHY Sodium Chloride (Normal Saline) 1,000 mls @ 75 mls/hr IV ASDIRECTED MARGARITO Last Admin: 05/31/20 03:29 Dose: 75 mls/hr Documented by: KATHY Norepinephrine Bitartrate 4 mg (/ Dextrose/Water) 250 mls @ 26.25 mls/hr IV TITRATE MARGARITO; Protocol Last Titration: 05/31/20 08:46 Dose: 0 mcg/min, 0 mls/hr Documented by: Titration: 05/31/20 08:15 Dose: 2.5 mcg/min, 9.375 mls/hr Documented by: Titration: 05/31/20 08:07 Dose: 5 mcg/min, 18.75 mls/hr Documented by: Titration: 05/31/20 07:58 Dose: 7 mcg/min, 26.25 mls/hr Documented by: Titration: 05/31/20 06:53 Dose: 10 mcg/min, 37.5 mls/hr Documented by: Titration: 05/31/20 06:39 Dose: 8 mcg/min, 30 mls/hr Documented by: Admin: 05/31/20 06:26 Dose: 7 mcg/min, 26.25 mls/hr Documented by: KATHY Non-Formulary Medication (Atorvastatin) 40 mg PO DAILY MARGARITO Assessment/Plan Comment:: Assessment Syncopal episode with hypotension following urination and a COVID positive patient. Hypokalemia -potassium 2.6 Hypoalbuminemia-Albumin 3.1 Thrombocytopenia -platelets 126,000 Chronic renal insufficiency -estimated GFR of 32 * Patient experienced a syncopal episode, hypotension, with no significant heart rate response. She was given fluid bolus and started on vasopressors. Vasopressors were able to be stopped few hours later and so her blood pressure has remained stable. * Patient did take a new medication, Zithromax approximately 8 hours prior to episode. * She also took NyQuil hour or 2 prior to syncopal episode. * No report of diarrhea and nausea stopped a couple days prior. She is on lisinopril and HCTZ, but she does have a profound hypokalemia. * No signs of sepsis. * Calcium 7.9, corrected calcium for hypoalbuminemia normal at 8.6 * Positive COVID-19. * Estimated GFR was between 28 and 35 in April 2019 * Patient does have diabetes, but 104. Patient is on Glucophage. * Although cause of syncope and hypotension is unknown, it is likely multifactorial to include illness from COVID-19, electrolyte abnormalities, medication side effects versus allergy of azithromycin or NyQuil. Chronic diabetes/hypertension/hyperlipidemia/kidney stone/cholecystectomy Plan * Patient will be admitted to the ICU for further evaluation. Currently she is normotensive with normal oxygenation. * Strict respiratory, droplet, contact precautions * Hold lisinopril hydrochlorothiazide and metformin * Give potassium chloride 40 mEq p.o. tonight with dinner. * Bedside glucose monitoring 4 times daily * Low-dose sliding scale insulin * Continue statin * Continue normal saline at 75 mL an hour until taking orally * Diabetic diet * FiO2 to keep SPO2 88 and 92%. * Check hemoglobin A1c, TSH, and follow-up blood cultures. * No indication for antibiotics. * Recheck CBC, CMP, mag, phosphorus, C-reactive protein, d-dimer in the morning VTE prophylaxis with Lovenox CODE STATUS: Full code Disposition: Admit to ICU for telemetry monitoring, close monitoring of blood pressure and pulse ox. If patient is stable overnight consider discharge tomorrow. - Mortality Measure Prognosis:: Good
[2020-05-31] MEDS: Insulin Lispro 100 Units/ML 3 ML Vial SUBCUT SCH ×3 (11:39→22:29)
[2020-05-31] MEDS ORDERED: Potassium Chloride 20 MEQ Tab.ER PO ONE (17:00)
[2020-06-01] MEDS: Insulin Lispro 100 Units/ML 3 ML Vial SUBCUT SCH ×2 (08:42→13:39)
[2020-06-01] MEDS: Enoxaparin 40 MG/0.4 ML Syringe SUBCUT SCH (08:42)
[2020-06-01] MEDS: Rosuvastatin 10 MG Tab PO SCH (08:42)
[2020-06-01] MEDS: Acetaminophen 325 MG Tab PO PRN ×2 (09:26→16:54)
--- NOTE | 2020-06-01 12:18 | PCM.PN ---
- General Info Date of Service: 06/01/20 Subjective Update: Feeling OK Slept well Tolerated diet Only complaint is cold and chills Had a normal BM followed by a smaller, softer BM yesterday - Patient Data Vitals - Most Recent: Last Vital Signs Temp 102.8 F H 06/01/20 09:30 Pulse 83 06/01/20 08:54 Resp 20 06/01/20 08:54 BP 107/67 06/01/20 08:54 Pulse Ox 94 L 06/01/20 08:54 Weight - Most Recent: 75.886 kg - Exam General: Alert, Oriented, Cooperative, No Acute Distress HEENT: Pupils Equal, Pupils Reactive, EOMI, Mucous Membr. Moist/[place] Neck: Supple, Trachea Midline, No JVD, No Thyromegaly Lungs: Clear to Auscultation, Normal Respiratory Effort. No: Decreased Breath Sounds, Crackles, Rales, Rhonchi, Rub, Stridor, Wheezing Cardiovascular: Regular Rate, Regular Rhythm, No Murmurs. No: Gallops, Rubs GI/Abdominal Exam: Normal Bowel Sounds, Soft, Non-Tender. No: Distended, Guarding, Rigid, Rebound Back Exam: Normal Inspection Extremities: Normal Inspection, Normal Range of Motion, Non-Tender, No Pedal Edema, Normal Capillary Refill Peripheral Pulses: 2+: Radial (L), Radial (R), Dorsalis Pedis (L), Dorsalis Pedis (R) Skin: Warm, Intact, Other (birthmark on left face) Neurological: No New Focal Deficit Psy/Mental Status: Normal Affect, Normal Mood Sepsis Event Note - Evaluation Sepsis Screening Result: No Definite Risk - Problem List & Annotations (1) COVID-19 SNOMED Code(s): 218682460 Code(s): U07.1 - COVID-19 Status: Acute Current Visit: Yes (2) Hypokalemia SNOMED Code(s): 29443829 Code(s): E87.6 - HYPOKALEMIA Status: Acute Current Visit: Yes (3) Hypotension SNOMED Code(s): 56914711 Code(s): I95.9 - HYPOTENSION, UNSPECIFIED Status: Acute Current Visit: Yes (4) HTN (hypertension) SNOMED Code(s): 29889842 Code(s): I10 - ESSENTIAL (PRIMARY) HYPERTENSION Status: Acute Current Visit: No Qualifiers: Hypertension type: unspecified Qualified Code(s): I10 - Essential (primary) hypertension (5) CKD (chronic kidney disease) stage 4, GFR 15-29 ml/min SNOMED Code(s): 647744408 Code(s): N18.4 - CHRONIC KIDNEY DISEASE, STAGE 4 (SEVERE) Status: Chronic Current Visit: No (6) Acute kidney injury SNOMED Code(s): 13689983, 59597352 Code(s): N17.9 - ACUTE KIDNEY FAILURE, UNSPECIFIED Status: Acute Current Visit: Yes (7) Fever SNOMED Code(s): 143491304 Code(s): R50.9 - FEVER, UNSPECIFIED Status: Acute Current Visit: Yes (8) Tachycardia SNOMED Code(s): 0270609 Code(s): R00.0 - TACHYCARDIA, UNSPECIFIED Status: Acute Current Visit: Yes (9) Acute hypoxemic respiratory failure due to COVID-19 SNOMED Code(s): 659277693 Code(s): U07.1 - COVID-19; J96.01 - ACUTE RESPIRATORY FAILURE WITH HYPOXIA Status: Acute Current Visit: Yes (10) Syncope and collapse SNOMED Code(s): 730353671 Code(s): R55 - SYNCOPE AND COLLAPSE Status: Acute Current Visit: Yes (11) Prediabetes SNOMED Code(s): 704780657 Code(s): R73.03 - PREDIABETES Status: Acute Current Visit: Yes (12) Dyslipidemia SNOMED Code(s): 252529331 Code(s): E78.5 - HYPERLIPIDEMIA, UNSPECIFIED Status: Acute Current Visit: Yes - Problem List Review Problem List Initiated/Reviewed/Updated: Yes - Assessment Assessment:: 05/30/2020 - 05/31/2020 Was at home with increased fatigue and body aches starting on day of admission States she was laying in her living room resting and got up to go to restroom to void Next thing she remembers is he daughter calling out for her and she was sitting on the floor covered in sweat - She does not recall the fall itself - Family members told her she did not hit her head and found her propped up against the wall She had been taking her home BP, DM and HTN medications Denies any shortness of breath, chest pain, palpitations, shortness of breath, congestion, cough, throat pain, abdominal pain, diarrhea, constipation, nausea, vomiting, fevers or chills Both daughter and grandson, live-in, have been diagnosed with COVID in the past week Seen in walk-in clinic yesterday--> CXR and COVID performed - CXR negative - Diagnosed with PNA - Discharged on azithromycin, took 1 dose Once in the ED - Hypotensive, 90/55, HR 61x', afebrile and 94% on RA - Next VS her BP dropped to 79/56 - No physical exam findings - CXR without any parenchymal changed - ABGs with acute respiratory acidosis - Given 1L IVF--> minimal change in BP - Central line placed and started on Dopamine drip - COVID resulted positive - 1 episode of vomiting that responded to IV Zofran x 1 dose - BP improved - Labs: K- 2.6, CO2-26, GFR- 32 - Normal lactic acid, troponin, d dimer, rest of CMP - Replaced KCl 40mEq IV - Tapered down dopamine and started on norepinephrine PLAN - Patient will be admitted to the ICU for further evaluation. Currently she is normotensive with normal oxygenation. - Strict respiratory, droplet, contact precautions - Hold lisinopril hydrochlorothiazide and metformin - Give potassium chloride 40 mEq p.o. tonight with dinner. - Bedside glucose monitoring 4 times daily - Low-dose sliding scale insulin - Continue statin - Continue normal saline at 75 mL an hour until taking orally - Diabetic diet - FiO2 to keep SPO2 88 and 92%. - Check hemoglobin A1c, TSH, and follow-up blood cultures. - No indication for antibiotics. - Recheck CBC, CMP, mag, phosphorus, C-reactive protein, d-dimer in the morning - VTE prophylaxis with Lovenox - Admit to ICU for telemetry monitoring, close monitoring of blood pressure and pulse ox. If patient is stable overnight consider discharge tomorrow. 06/01/2020 Levophed turned off at 9AM on 05/31 On room air since 8AM on 05/31 Spiking fevers, no other etiologies other than respiratory found VS trend - BP: 91-145/46-93 - HR: 61-122x' - Tmax: 101.9 - SatO2 > 92% New lab results - Plt up from 126 to 129 - K up from 2.6 to 4 - GFR up from 32 to 37 - Glu POC 68-82 - Plan Plan:: COVID-19 infection Fever - Continue to monitor pulse oximetry - Goal O2Sat between 92-96% - Procalcitonin today - Follow up on blood cultures - Repeat blood cultures if she spikes a fever again HTN (hypertension) - Continue to hold home BP meds for now - PRN hydralazine Pre-diabetes, HbA1c- 6% - Discontinue Accu-checks - Accuchecks only if patient is symptomatic - Hypoglycemia protocol - Glucose checks with daily labs Acute on chronic kidney disease, stage IV CKD (chronic kidney disease) stage 4, GFR 15-29 ml/min - Monitor urine output - Renally dosed medications - Repeat labs daily as needed Dyslipidemia - Continue home statin Acute hypoxemic respiratory failure due to COVID-19, resolved Hypotension, resolved Hypokalemia, resolved Tachycardia, resolved Syncope, resolved PROPHYLAXIS DVT- Lovenox GI- not indicated CODE STATUS: FULL CODE DISPOSITION: Patient will remain admitted under med surg status, clinically improved but still spiking fevers. She will need to be afebrile for >24 hours to plan for discharge.
[2020-06-01] MEDS ORDERED: hydrALAZINE 20 MG/ML SDV IVPUSH PRN (16:34)
[2020-06-01] MEDS ORDERED: 50% Dextrose in Water 50 ML Syringe IVPUSH PRN (16:34)
[2020-06-02] MEDS: Acetaminophen 325 MG Tab PO PRN ×2 (02:09→11:56)
[2020-06-02] MEDS: Rosuvastatin 10 MG Tab PO SCH (09:14)
[2020-06-02] MEDS: Enoxaparin 40 MG/0.4 ML Syringe SUBCUT SCH (09:14)
--- NOTE | 2020-06-02 11:28 | PCM.DCSUM1 ---
Discharge Summary - Hospital Course HPI Initial Comments: 69-year-old female [place]-speaking only came to the emergency room after having a syncopal episode. Patient states, through an leave specialist, that she was feeling flushed and feverish last night around 1130 and she got up to go to the bathroom. After urinating she stood up and things became distant and she hit the floor. Patient does not know if she hit her head. Patient denies any headaches or chest pain. Patient's daughter was staying with her last night and heard her fall and came into check on her in the bathroom. Patient remembers hearing her daughter distantly. She was then brought to the emergency room via EMS. Patient denies any pain, shortness of breath, headache, or palpitations. Patient states that she was seen at the clinic a couple days ago secondary to feeling ill with body aches, pain, and vomiting. Patient had a COVID PCR performed that was sent out and a chest x-ray done. Chest x-ray reportedly showed nothing acute and she was started on azithromycin. Patient took her first dose of azithromycin 500 mg at approximately 1500 hours several hours before her syncopal episode. Patient's daughter states she also was given NyQuil the night that she had her syncopal episode. She denies any wheezing, stridor, she was not hypoxic when she got to the emergency department, no hives or rash, no pruritus or flushing, no swollen lips or tongue. In the emergency department her initial blood pressure was 90/35 with a heart rate of 61. Oxygen saturations were 94% on room air. Shortly after arriving to the emergency department her blood pressure decreased to 79/56 with a heart rate of 62. Patient is on lisinopril/hydrochlorothiazide, but has not taken more than normal. She is not on a rate medication including calcium channel sommer or beta-sommer. Patient received 1 L normal saline bolus. Blood pressure did not respond to the initial bolus, therefore patient was placed on dopamine. Blood pressure did improve with dopamine, but she became tachycardic. They switched her to norepinephrine with good control of her blood pressure. Lab work with significant for a potassium of 2.6- troponin x2 normal UA lactic acid of 1.3 WBC of 4.48, platelet count 126, hemoglobin 13.2, essentially normal blood gas, normal INR and PTT, creatinine of 1.6 with estimated GFR of 32 which appears to be chronic, mild anion gap of 15.6 and a slightly elevated BNP of 220. Patient was positive for SARS virus RNA by PCR. Patient was started on IV potassium and did receive 40 mEq in the emergency department. She was brought to the ICU on 2-1/2 mcg/min of norepinephrine and initial blood pressure was 130/86. She was also on 2 L of O2 via nasal cannula and her oxygen saturations were 100%. Both supplemental oxygen and norepinephrine were stopped and vitals remained stable with blood pressure at 1200 hrs. of 111/83, respiratory rate of 18, and SPO2 of 96% with heart rate of 77 and temperature of 98.2. Patient remains asymptomatic. Diagnosis: Stroke: No - Discharge Data Discharge Date: 06/02/20 Discharge Disposition: Home, Self-Care 01 Condition: Good - Referral to Home Health Primary Care Physician: KEVIN Kaufman - Discharge Diagnosis/Problem(s) (1) COVID-19 SNOMED Code(s): 843959455 ICD Code: U07.1 - COVID-19 Status: Acute Current Visit: Yes (2) Hypokalemia SNOMED Code(s): 63589387 ICD Code: E87.6 - HYPOKALEMIA Status: Acute Current Visit: Yes (3) Hypotension SNOMED Code(s): 14865775 ICD Code: I95.9 - HYPOTENSION, UNSPECIFIED Status: Acute Current Visit: Yes (4) HTN (hypertension) SNOMED Code(s): 96026771 ICD Code: I10 - ESSENTIAL (PRIMARY) HYPERTENSION Status: Acute Current Visit: No Qualifiers: Hypertension type: unspecified Qualified Code(s): I10 - Essential (primary) hypertension (5) CKD (chronic kidney disease) stage 4, GFR 15-29 ml/min SNOMED Code(s): 739168285 ICD Code: N18.4 - CHRONIC KIDNEY DISEASE, STAGE 4 (SEVERE) Status: Chronic Current Visit: No (6) Acute kidney injury SNOMED Code(s): 30375231, 92319271 ICD Code: N17.9 - ACUTE KIDNEY FAILURE, UNSPECIFIED Status: Acute Current Visit: Yes (7) Fever SNOMED Code(s): 126067669 ICD Code: R50.9 - FEVER, UNSPECIFIED Status: Acute Current Visit: Yes (8) Tachycardia SNOMED Code(s): 5363763 ICD Code: R00.0 - TACHYCARDIA, UNSPECIFIED Status: Acute Current Visit: Yes (9) Acute hypoxemic respiratory failure due to COVID-19 SNOMED Code(s): 028826545 ICD Code: U07.1 - COVID-19; J96.01 - ACUTE RESPIRATORY FAILURE WITH HYPOXIA Status: Acute Current Visit: Yes (10) Syncope and collapse SNOMED Code(s): 692265672 ICD Code: R55 - SYNCOPE AND COLLAPSE Status: Acute Current Visit: Yes (11) Prediabetes SNOMED Code(s): 404405288 ICD Code: R73.03 - PREDIABETES Status: Acute Current Visit: Yes (12) Dyslipidemia SNOMED Code(s): 256440793 ICD Code: E78.5 - HYPERLIPIDEMIA, UNSPECIFIED Status: Acute Current Visit: Yes - Patient Summary/Data Hospital Course: 05/30/2020 - 05/31/2020 Was at home with increased fatigue and body aches starting on day of admission States she was laying in her living room resting and got up to go to restroom to void Next thing she remembers is he daughter calling out for her and she was sitting on the floor covered in sweat - She does not recall the fall itself - Family members told her she did not hit her head and found her propped up against the wall She had been taking her home BP, DM and HTN medications Denies any shortness of breath, chest pain, palpitations, shortness of breath, congestion, cough, throat pain, abdominal pain, diarrhea, constipation, nausea, vomiting, fevers or chills Both daughter and grandson, live-in, have been diagnosed with COVID in the past week Seen in walk-in clinic yesterday--> CXR and COVID performed - CXR negative - Diagnosed with PNA - Discharged on azithromycin, took 1 dose Once in the ED - Hypotensive, 90/55, HR 61x', afebrile and 94% on RA - Next VS her BP dropped to 79/56 - No physical exam findings - CXR without any parenchymal changed - ABGs with acute respiratory acidosis - Given 1L IVF--> minimal change in BP - Central line placed and started on Dopamine drip - COVID resulted positive - 1 episode of vomiting that responded to IV Zofran x 1 dose - BP improved - Labs: K- 2.6, CO2-26, GFR- 32 - Normal lactic acid, troponin, d dimer, rest of CMP - Replaced KCl 40mEq IV - Tapered down dopamine and started on norepinephrine PLAN - Patient will be admitted to the ICU for further evaluation. Currently she is normotensive with normal oxygenation. - Strict respiratory, droplet, contact precautions - Hold lisinopril hydrochlorothiazide and metformin - Give potassium chloride 40 mEq p.o. tonight with dinner. - Bedside glucose monitoring 4 times daily - Low-dose sliding scale insulin - Continue statin - Continue normal saline at 75 mL an hour until taking orally - Diabetic diet - FiO2 to keep SPO2 88 and 92%. - Check hemoglobin A1c, TSH, and follow-up blood cultures. - No indication for antibiotics. - Recheck CBC, CMP, mag, phosphorus, C-reactive protein, d-dimer in the morning - VTE prophylaxis with Lovenox - Admit to ICU for telemetry monitoring, close monitoring of blood pressure and pulse ox. If patient is stable overnight consider discharge tomorrow. 06/01/2020 Levophed turned off at 9AM on 05/31 On room air since 8AM on 05/31 Spiking fevers, no other etiologies other than respiratory found VS trend - BP: 91-145/46-93 - HR: 61-122x' - Tmax: 101.9 - SatO2 > 92% New lab results - Plt up from 126 to 129 - K up from 2.6 to 4 - GFR up from 32 to 37 - Glu POC 68-82 PLAN - Continue to monitor pulse oximetry - Goal O2Sat between 92-96% - Procalcitonin today - Follow up on blood cultures - Repeat blood cultures if she spikes a fever again - PRN hydralazine - Discontinue Accu-checks - Accuchecks only if patient is symptomatic - Hypoglycemia protocol - Glucose checks with daily labs - Monitor urine output - Renally dosed medications - Repeat labs daily as needed - Continue home statin Patient will remain admitted under med surg status, clinically improved but still spiking fevers. 06/02/2020 Still had some fever episodes throughout the day Clinically patient is stable and symptoms have resolved Tolerating diet Procalcitonin negative Had extensive discussion regarding possible complications or worsening symptoms and she understood Stable enough to be discharged today VS trend - MAP: 71-102 - HR: 77-79x' - Tmax: 102.8 - SatO2 dropped to 88 while sleeping and returned to normal after waking up New lab results - GFR stable at 37 - Patient Instructions Diet: Diabetic Diet - Discharge Plan *PRESCRIPTION DRUG MONITORING PROGRAM REVIEWED*: Not Applicable *COPY OF PRESCRIPTION DRUG MONITORING REPORT IN PATIENT ISI: Not Applicable Prescriptions/Med Rec: Acetaminophen [Tylenol] 650 mg PO Q4H PRN #120 tablet PRN Reason: Fever Home Medications: Home Meds atorvaSTATin [Lipitor] 40 mg PO DAILY 05/06/19 [History] Lisinopril/Hydrochlorothiazide [Lisinopril-Hctz 20-12.5 mg Tab] 1 each PO DAILY #0 05/10/19 [Rx] metFORMIN [Glucophage] 500 mg PO DAILY 05/31/20 [History] Acetaminophen [Tylenol] 650 mg PO Q4H PRN #120 tablet 06/02/20 [Rx] Oxygen Therapy Mode: Room Air Patient Handouts: COVID-19, Hypokalemia, Diabetes Mellitus and Sick Day Management, Heart Failure Action Plan, COVID-19: How to Protect Yourself and Others - [facility], Potassium Content of Foods Forms: ED Department Discharge Referrals: Chrystal Orellana PA-C [Primary Care Provider] - - Discharge Summary/Plan Comment DC Time >30 min.: No - General Info Date of Service: 06/02/20 Subjective Update: Feeling great Slept OK Tolerating diet Is very comfortable going home - Patient Data Vitals - Most Recent: Last Vital Signs Temp 99.3 F 06/02/20 08:00 Pulse 79 06/02/20 04:00 Resp 18 06/02/20 08:00 BP 110/78 06/02/20 08:00 Pulse Ox 90 L 06/02/20 11:00 Weight - Most Recent: 76 kg - Exam General: Reports: Alert, Oriented, Cooperative, No Acute Distress HEENT: Reports: Pupils Equal, Pupils Reactive, EOMI, Mucous Membr. Moist/[place] Neck: Reports: Supple, Trachea Midline, No JVD, No Thyromegaly Lungs: Reports: Clear to Auscultation, Normal Respiratory Effort. Denies: Decreased Breath Sounds, Crackles, Rales, Rhonchi, Rub, Stridor, Wheezing Cardiovascular: Reports: Regular Rate, Regular Rhythm. Denies: Murmurs, Gallops, Rubs GI/Abdominal Exam: Normal Bowel Sounds, Soft, Non-Tender. No: Distended, Guarding, Rigid, Rebound Back Exam: Reports: Normal Inspection, Full Range of Motion. Denies: CVA Tenderness (L), CVA Tenderness (R), Paraspinal Tenderness, Vertebral Tenderness Extremities: Normal Inspection, Normal Range of Motion, No Pedal Edema, Normal Capillary Refill Skin: Reports: Warm, Dry, Intact Neurological: Reports: No New Focal Deficit Psy/Mental Status: Reports: Normal Affect, Normal Mood Discharge Operative/Procedures - Procedures Performed CL Indication: IV access, medication administration (Dopamine, KCl)
== END 2020-06-02 14:50 | disposition home or self-care (01) | DRG 177 ==
LOC: JD.ED 01:01 → JD.ICU 07:28 → UNDOADMIN 07:28 → JD.ICU 08:16 → UNDODISIN 06-02 14:50
PROVIDERS: ADMIT Family Medicine; ATTEND Family Medicine
DX: U07.1 COVID-19 (principal); J96.01 Acute respiratory failure with hypoxia; N17.9 Acute kidney failure, unspecified; N18.4 Chronic kidney disease, stage 4 (severe); I10 Essential (primary) hypertension; E11.9 Type 2 diabetes mellitus without complications; E66.9 Obesity, unspecified; E87.2 Acidosis; Z98.42 Cataract extraction status, left eye; Z98.41 Cataract extraction status, right eye; E87.6 Hypokalemia; I95.9 Hypotension, unspecified; Z88.1 Allergy status to other antibiotic agents; I12.9 Hypertensive chronic kidney disease with stage 1 through stage 4 chronic kidney disease, or unspecified chronic kidney disease; Z79.899 Other long term (current) drug therapy; E78.00 Pure hypercholesterolemia, unspecified; D69.6 Thrombocytopenia, unspecified; E11.22 Type 2 diabetes mellitus with diabetic chronic kidney disease; Z98.49 Cataract extraction status, unspecified eye; Z90.49 Acquired absence of other specified parts of digestive tract; Z87.891 Personal history of nicotine dependence; Z87.442 Personal history of urinary calculi; Z79.84 Long term (current) use of oral hypoglycemic drugs
CPT/HCPCS: 36415; 36556; 36600; 71045; 80053; 81001; 82803; 83036; 83605; 83735; 83880; 84443; 84484 ×2; 85007; 85027; 85379; 85610; 85730; 87040 ×2; 93005 ×2; 96361; 96365; 96366; 96367; 96368; 96375; 96376; 99285; J1265 ×3; J2405; J3480 ×4; J7030 ×2; J7060; U0002; 31500; 80048; 82962; 84100; 84145; 85025; 86140; 87070; 93010; 97161-GP; 97165-GO; 99222; 99232; 99238; A9270-GY; J1650

== ENCOUNTER 2020-06-02 15:13 | Inpatient (IN) | payer MEDICARE, SELFPAY ==
[2020-06-02] MEDS ORDERED: Sodium Chloride 0.9% 10 ML Syringe FLUSH PRN (16:06)
[2020-06-02] MEDS ORDERED: Acetaminophen 325 MG Tab PO ONE (16:11)
--- NOTE | 2020-06-02 16:14 | EDM.PDOC ---
ED HPI GENERAL MEDICAL PROBLEM - General Chief Complaint: Syncope Stated Complaint: SYNCOPE/COVID + Time Seen by Provider: 06/02/20 15:49 Source of Information: Reports: Patient, Family History Limitations: Reports: No Limitations - History of Present Illness INITIAL COMMENTS - FREE TEXT/NARRATIVE: The patient presents with her daughter for a syncopal episode. She was just dis charged from the hospital. She has COVID 19 infection and she had a syncopal episode with low blood pressures. She was on a levophed drip and did better She was doing good today and discharged. She was in the drive through and passed out for about 3 minutes. She had no seizure activity. She has no headache or chest pain. She gonzales have a fever now and a little shortness of breath. She has no abdominal pain, nausea or vomiting. Onset: Sudden Duration: Minutes: Severity: Moderate Improves with: Reports: None Worsens with: Reports: None Associated Symptoms: Reports: Fever/Chills, Shortness of Breath. Denies: Chest Pain, Cough, Headaches, Nausea/Vomiting - Related Data Allergies Allergy/AdvReac Type Severity Reaction Status Date / Time levofloxacin [From Levaquin] Allergy Itching Verified 06/02/20 15:39 azithromycin AdvReac Hypotension Verified 06/02/20 15:39 Home Meds: Home Meds atorvaSTATin [Lipitor] 40 mg PO DAILY 05/06/19 [History] Lisinopril/Hydrochlorothiazide [Lisinopril-Hctz 20-12.5 mg Tab] 1 each PO DAILY #0 05/10/19 [Rx] metFORMIN [Glucophage] 500 mg PO DAILY 05/31/20 [History] Acetaminophen [Tylenol] 650 mg PO Q4H PRN #120 tablet 06/02/20 [Rx] Past Medical History HEENT History: Reports: Cataract Other HEENT History: bilateral cataracts Cardiovascular History: Reports: High Cholesterol, Hypertension Genitourinary History: Reports: 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: Endocrine/Metabolic History: Reports: Diabetes, Type II, Obesity/BMI 30+ - Infectious Disease History Infectious Disease History: Reports: Novel Coronavirus - Past Surgical History HEENT Surgical History: Reports: Cataract Surgery GI Surgical History: Reports: Cholecystectomy Female Surgical History: Reports: Other (See Below) Social & Family History - Family History Family Medical History: Noncontributory - Tobacco Use Smoking Status *Q: Never Smoker Second Hand Smoke Exposure: No - Caffeine Use Caffeine Use: Reports: Coffee - Recreational Drug Use Recreational Drug Use: No - Living Situation & Occupation Living situation: Reports: , with Family (Son + 3 grandkids) Occupation: Retired ED ROS GENERAL - Review of Systems Review Of Systems: See Below Constitutional: Reports: Fever, Chills HEENT: Reports: No Symptoms Respiratory: Reports: Shortness of Breath. Denies: Cough Cardiovascular: Reports: Syncope. Denies: Chest Pain Endocrine: Reports: No Symptoms GI/Abdominal: Reports: No Symptoms : Reports: No Symptoms - Physical Exam Exam: See Below Exam Limited By: No Limitations General Appearance: Alert, No Apparent Distress Ears: Normal External Exam Nose: Normal Inspection Head Exam: Atraumatic, Normocephalic Neck: Normal Inspection, Supple, Non-Tender Respiratory/Chest: No Respiratory Distress, Lungs Clear, Normal Breath Sounds Cardiovascular: Regular Rate, Rhythm, No Edema, No Murmur GI/Abdominal: Soft, Non-Tender, No Organomegaly, No Mass Neuro Exam (Abbreviated): Alert, Oriented, No Motor/Sensory Deficits EKG INTERPRETATION EKG Date: 06/02/20 Time: 16:36 Rhythm: NSR Rate (Beats/Min): 82 [place]: Normal P-Wave: Present QRS: Normal ST-T: Normal QT: Normal Course - Vital Signs Last Recorded V/S: Last Vital Signs Temp 100.5 F 06/02/20 15:40 Pulse 82 06/02/20 17:00 Resp 20 06/02/20 17:00 BP 103/71 06/02/20 15:40 Pulse Ox 94 L 06/02/20 17:15 - Orders/Labs/Meds Orders: Active Orders 24 hr Category Date Time Status Cardiac Monitoring [RC] . DIRECTED Care 06/02/20 16:06 Active EKG Documentation Completion [RC] STAT Care 06/02/20 16:06 Active Oxygen Therapy [RC] PRN Care 06/02/20 16:06 Active Peripheral IV Care [RC] . DIRECTED Care 06/02/20 16:06 Active Ang Chest [CT] Stat Exams 06/02/20 16:07 Stop Req C-REACTIVE PROTEIN [CHEM] Stat Lab 06/02/20 16:35 Results COMPREHENSIVE METABOLIC PN,CMP [CHEM] Stat Lab 06/02/20 16:35 Results FERRITIN [CHEM] Stat Lab 06/02/20 16:35 Received LACTATE DEHYDROGENASE,LDH [CHEM] Stat Lab 06/02/20 16:35 Results MAGNESIUM [CHEM] Stat Lab 06/02/20 16:35 Results TROPONIN I [CHEM] Stat Lab 06/02/20 16:35 Results Sodium Chloride 0.9% [Normal Saline] 1,000 ml Med 06/02/20 16:15 Active IV ASDIRECTED Sodium Chloride 0.9% [Saline Flush] Med 06/02/20 16:06 Active 10 ml FLUSH ASDIRECTED PRN Peripheral IV Insertion Adult [OM.PC] Stat Oth 06/02/20 16:06 Ordered Medication Orders Sodium Chloride (Normal Saline) 1,000 mls @ 125 mls/hr IV ASDIRECTED MARGARITO Last Admin: 06/02/20 16:40 Dose: 125 mls/hr Documented by: PARISH Sodium Chloride (Saline Flush) 10 ml FLUSH ASDIRECTED PRN PRN Reason: Keep Vein Open Last Admin: 06/02/20 16:40 Dose: 10 ml Documented by: PARISH Labs: Laboratory Tests 06/02/20 06/02/20 06/02/20 Range/Units 16:35 16:35 16:35 WBC 6.91 (3.98-10.04) K/mm3 RBC 4.53 (3.98-5.22) M/mm3 Hgb 13.2 (11.2-15.7) gm/dl Hct 41.0 (34.1-44.9) % MCV 90.5 (79.4-94.8) fl MCH 29.1 (25.6-32.2) pg MCHC 32.2 (32.2-35.5) g/dl RDW Std Deviation 46.6 H (36.4-46.3) fL Plt Count 130 L (182-369) K/mm3 MPV 11.8 (9.4-12.3) fl Neut % (Auto) 81.0 H (34.0-71.1) % Lymph % (Auto) 14.3 L (19.3-51.7) % Wood % (Auto) 4.6 L (4.7-12.5) % Eos % (Auto) 0 L (0.7-5.8) Baso % (Auto) 0.0 L (0.1-1.2) % Neut # (Auto) 5.59 (1.56-6.13) K/mm3 Lymph # (Auto) 0.99 L (1.18-3.74) K/mm3 Wood # (Auto) 0.32 (0.24-0.36) K/mm3 Eos # (Auto) 0.00 L (0.04-0.36) K/mm3 Baso # (Auto) 0.00 L (0.01-0.08) K/mm3 D-Dimer, Quantitative 0.41 (0.19-0.50) mg/L Sodium 134 L (136-145) mEq/L Potassium 3.7 (3.5-5.1) mEq/L Chloride 96 L (98-107) mEq/L Carbon Dioxide 30 (21-32) mEq/L Anion Gap 11.7 (5-15) BUN 9 (7-18) mg/dL Creatinine 1.4 H (0.55-1.02) mg/dL Est Cr Clr Drug Dosing 34.61 mL/min Estimated GFR (MDRD) 37 (>60) mL/min BUN/Creatinine Ratio 6.4 L (14-18) Glucose 95 (80-115) mg/dL Calcium 8.3 L (8.5-10.1) mg/dL Magnesium 2.2 (1.8-2.4) mg/dl Total Bilirubin 0.7 (0.2-1.0) mg/dL AST 32 (15-37) U/L ALT 22 (14-59) U/L Alkaline Phosphatase 77 (46-116) U/L Lactate Dehydrogenase 264 H (81-234) U/L Troponin I < 0.017 (0.00-0.056) ng/mL Total Protein 7.1 (6.4-8.2) g/dl Albumin 2.9 L (3.4-5.0) g/dl Globulin 4.2 gm/dL Albumin/Globulin Ratio 0.7 L (1-2) Meds: Medications Generic Name Dose Route Start Last Admin Trade Name Freq PRN Reason Stop Dose Admin Sodium Chloride 1,000 mls @ 125 mls/hr 06/02/20 16:15 06/02/20 16:40 Normal Saline IV 125 mls/hr ASDIRECTED MARGARITO Administration Sodium Chloride 10 ml 06/02/20 16:06 06/02/20 16:40 Saline Flush FLUSH 10 ml ASDIRECTED PRN Administration Keep Vein Open Discontinued Medications Generic Name Dose Route Start Last Admin Trade Name Isaias PRN Reason Stop Dose Admin Acetaminophen 975 mg 06/02/20 16:11 06/02/20 16:40 Tylenol PO 06/02/20 16:12 975 mg NOW ONE Administration - Re-Assessments/Exams Free Text/Narrative Re-Assessment/Exam: 06/02/20 16:13 I ordered an IV NS at 125mL/hr, tylenol 975mg PO, labs, EKG, and a CT angio of her chest. 06/02/20 17:41 Her EKG shows a NSR with no acute changes. Her CXR shows increasing parenchymal densities on both sides of the chest from prior study. Given the diffuse nature of these findings they are most likely due to viral pneumonia. Cardiomegaly and other stable findings. Her CBC looks good. Her D-dimer is negative. Her Na is low at 134. Her creatinine is elevated at 1.4. Her LDH is elevated at 264. Her troponin is negative. I feel she needs to be admitted again. Her oxygen saturations dipped below the 90s. I put her on some oxygen. Departure - Departure Time of Disposition: 17:45 Disposition: Admitted As Inpatient 67 Condition: Fair Clinical Impression: COVID-19, Syncope and collapse, Pneumonia due to COVID-19 virus, Hypoxia - Discharge Information Referrals: Chrystal Orellana PA-C [Primary Care Provider] - Forms: ED Department Discharge Sepsis Event Note (ED) - Evaluation Sepsis Screening Result: No Definite Risk - Focused Exam Vital Signs: Vital Signs Temp Pulse Resp BP Pulse Ox Pulse Ox 06/02/20 17:15 94 L 06/02/20 17:10 89 L 06/02/20 17:00 82 20 91 L 06/02/20 16:45 89 L 06/02/20 15:40 100.5 F 77 103/71 95 - My Orders Last 24 Hours: My Active Orders 06/02/20 16:06 Cardiac Monitoring [RC] . DIRECTED EKG Documentation Completion [RC] STAT Oxygen Therapy [RC] PRN Peripheral IV Care [RC] . DIRECTED Sodium Chloride 0.9% [Saline Flush] 10 ml FLUSH ASDIRECTED PRN Peripheral IV Insertion Adult [OM.PC] Stat 06/02/20 16:07 Ang Chest [CT] Stat 06/02/20 16:15 Sodium Chloride 0.9% [Normal Saline] 1,000 ml IV ASDIRECTED 06/02/20 16:35 C-REACTIVE PROTEIN [CHEM] Stat COMPREHENSIVE METABOLIC PN,CMP [CHEM] Stat FERRITIN [CHEM] Stat LACTATE DEHYDROGENASE,LDH [CHEM] Stat MAGNESIUM [CHEM] Stat TROPONIN I [CHEM] Stat - Assessment/Plan Last 24 Hours: My Active Orders 06/02/20 16:06 Cardiac Monitoring [RC] . DIRECTED EKG Documentation Completion [RC] STAT Oxygen Therapy [RC] PRN Peripheral IV Care [RC] . DIRECTED Sodium Chloride 0.9% [Saline Flush] 10 ml FLUSH ASDIRECTED PRN Peripheral IV Insertion Adult [OM.PC] Stat 06/02/20 16:07 Ang Chest [CT] Stat 06/02/20 16:15 Sodium Chloride 0.9% [Normal Saline] 1,000 ml IV ASDIRECTED 06/02/20 16:35 C-REACTIVE PROTEIN [CHEM] Stat COMPREHENSIVE METABOLIC PN,CMP [CHEM] Stat FERRITIN [CHEM] Stat LACTATE DEHYDROGENASE,LDH [CHEM] Stat MAGNESIUM [CHEM] Stat TROPONIN I [CHEM] Stat
[2020-06-02] MEDS: Sodium Chloride 0.9% 1,000 ML IV SCH (16:40)
--- NOTE | 2020-06-02 17:12 | CR ---
Chest: Portable view of the chest was obtained. Comparison: Prior chest x-ray of 05/31/20. Increasing parenchymal density is seen on both sides of the chest. Findings are an interval change from prior exam. Stable cardiomegaly and tortuous thoracic aorta are noted. Scoliosis is noted within the spine with osteopenia. Impression: 1. Increasing parenchymal densities on both sides of the chest from prior study. Given the diffuse nature of these findings they are most likely due to viral pneumonia. 2. Cardiomegaly and other stable findings. Diagnostic code #3 This report was dictated in MDT
[2020-06-02] MEDS ORDERED: Ondansetron 4 MG Tab.DIS PO PRN (17:40)
[2020-06-02] MEDS ORDERED: Acetaminophen 325 MG Tab PO PRN (17:40)
[2020-06-02] MEDS ORDERED: REMDESIVIR 200 MG in Sodium Chloride 0.9% 250 ML IV STA (17:40)
[2020-06-02] MEDS ORDERED: Ondansetron 4 MG/2 ML SDV IV PRN (17:40)
--- NOTE | 2020-06-02 18:00 | PCM.HP.2 ---
H&P History of Present Illness - General Date of Service: 06/02/20 Admit Problem/Dx: Admission Diagnosis/Problem Admission Diagnosis/Problem Viral pneumonia - History of Present Illness Initial Comments - Free Text/Narative: This is a 69-year-old female with past medical history of prediabetes and hypertension who was just discharged from this facility this morning. Patient was admitted for 3 days after a covered diagnosis and refractory hypotension that required vasopressors for about 12 hours. Her hospital course was not complicated and she did not require any oxygen supplementation. Upon interrogation this morning she stated that she felt fine, back to baseline, her physical exam was normal with lung sounds completely clear. Patient was discharged a couple of hours ago and went with her daughter to get some food. Upon arrival to the restaurant patient describes feeling weak and dizzy but mainly nauseous and she vomited once. Around that time she did have an episode of altered mental status with decreased responsiveness. She does not recall this episode at all She does note that she feels a lot worse than she did this morning. Stating that she is a little short of breath, a lot weaker. She denies any chest pain, palpitations, abdominal pain, diarrhea, constipation, fevers, chills. - Related Data Allergies/Adverse Reactions: Allergies Allergy/AdvReac Type Severity Reaction Status Date / Time levofloxacin [From Levaquin] Allergy Itching Verified 06/02/20 15:39 azithromycin AdvReac Hypotension Verified 06/02/20 15:39 Home Medications: Home Meds atorvaSTATin [Lipitor] 40 mg PO DAILY 05/06/19 [History] Lisinopril/Hydrochlorothiazide [Lisinopril-Hctz 20-12.5 mg Tab] 1 each PO DAILY #0 05/10/19 [Rx] metFORMIN [Glucophage] 500 mg PO DAILY 05/31/20 [History] Acetaminophen [Tylenol] 650 mg PO Q4H PRN #120 tablet 06/02/20 [Rx] Past Medical History HEENT History: Reports: Cataract Other HEENT History: bilateral cataracts Cardiovascular History: Reports: High Cholesterol, Hypertension 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: Endocrine/Metabolic History: Reports: Diabetes, Type II, Obesity/BMI 30+ - Infectious Disease History Infectious Disease History: Reports: Novel Coronavirus - Past Surgical History HEENT Surgical History: Reports: Cataract Surgery GI Surgical History: Reports: Cholecystectomy Female Surgical History: Reports: Other (See Below) Social & Family History - Family History Family Medical History: Noncontributory - Tobacco Use Smoking Status *Q: Never Smoker Second Hand Smoke Exposure: No - Caffeine Use Caffeine Use: Reports: Coffee - Recreational Drug Use Recreational Drug Use: No - Living Situation & Occupation Living situation: Reports: , with Family (Son + 3 grandkids) Occupation: Retired H&P Review of Systems - Review of Systems: Review Of Systems: See Below General: Reports: Fever, Chills, Malaise, Weakness, Fatigue. Denies: Night Sweats, Diaphoresis, Decreased Appetite, Weight Loss, Weight Gain HEENT: Denies: Headaches, Hearing Changes, Rhinitis, Post Nasal Drip, Sinus Congestion, Sore Throat, Vertigo, Visual Changes Pulmonary: Denies: Shortness of Breath, Wheezing, Pleuritic Chest Pain, Cough, Sputum, Hemoptysis Cardiovascular: Reports: Lightheadedness. Denies: Chest Pain, Palpitations, Dyspnea on Exertion, Orthopnea, PND, Edema, Syncope, Claudication Gastrointestinal: Reports: Nausea, Vomiting. Denies: Abdominal Pain, Anorexia, Black Stool, Bloody Stool, Constipation, Diarrhea, Decreased Appetite, Difficulty Swallowing, Distension, Flatus, Hematemesis, Hematochezia, Melena, Mucous in Stool Genitourinary: Denies: Dysuria, Frequency, Burning, Pain, Urgency Musculoskeletal: Denies: Joint Pain, Joint Swelling, Muscle Pain, Muscle Stiffness Skin: Reports: Diaphoresis. Denies: Cyanosis, Jaundice, Mottled, Pallor Psychiatric: Denies: Confusion, Depression, Mood Lability, Anxiety Neurological: Reports: Confusion, Dizziness. Denies: Headache, Numbness, Paresthesia Exam - Exam Exam: See Below - Vital Signs Vital Signs: Last Vital Signs Temp 100.5 F 06/02/20 15:40 Pulse 82 06/02/20 17:00 Resp 20 06/02/20 17:00 BP 103/71 06/02/20 15:40 Pulse Ox 94 L 06/02/20 17:15 Weight: 72.575 kg - Exam Quality Assessment: Supplemental Oxygen General: Alert, Oriented, Cooperative, Mild Distress, Moderate Distress HEENT: Mucosa Moist & [place], Nares Patent, Pupils Equal, Pupils Reactive. No: Conjunctiva Clear (Injected) Neck: Supple, Trachea Midline Lungs: Decreased Breath Sounds, Crackles (Throughout both lung syed, both apices are spared). No: Rales, Rhonchi, Rub, Stridor, Wheezing Cardiovascular: Regular Rate, Regular Rhythm. No: Systolic Murmur, Diastolic Murmur, Rubs, Gallop/S3, Gallop/S4 GI/Abdominal Exam: Normal Bowel Sounds, Soft, Tender (Mild tenderness in the epigastrium). No: Distended, Guarding, Rigid Back Exam: Normal Inspection, Full Range of Motion. No: CVA Tenderness (L), CVA Tenderness (R) Extremities: Normal Inspection, Non-Tender, No Pedal Edema, Normal Capillary Refill Peripheral Pulses: 1+: Radial (L), Radial (R), 2+: Dorsalis Pedis (L), Dorsalis Pedis (R) Skin: Warm, Dry, Intact Psychiatric: Normal Affect, Normal Mood - Patient Data Result Diagrams: 06/02/20 16:35 06/02/20 16:35 Sepsis Event Note - Evaluation Sepsis Screening Result: No Definite Risk - Focused Exam Vital Signs: Vital Signs Temp Pulse Resp BP Pulse Ox Pulse Ox 06/02/20 17:15 94 L 06/02/20 17:10 89 L 06/02/20 17:00 82 20 91 L 06/02/20 16:45 89 L 06/02/20 15:40 100.5 F 77 103/71 95 - Problem List (1) Nausea and vomiting SNOMED Code(s): 36197760 ICD Code: R11.2 - NAUSEA WITH VOMITING, UNSPECIFIED Status: Acute Current Visit: Yes (2) Pneumonia due to COVID-19 virus SNOMED Code(s): 478830788 ICD Code: U07.1 - COVID-19; J12.89 - OTHER VIRAL PNEUMONIA Status: Acute Current Visit: Yes (3) Syncope and collapse SNOMED Code(s): 054659872 ICD Code: R55 - SYNCOPE AND COLLAPSE Status: Acute Current Visit: Yes (4) Acute hypoxemic respiratory failure due to COVID-19 SNOMED Code(s): 893494735 ICD Code: U07.1 - COVID-19; J96.01 - ACUTE RESPIRATORY FAILURE WITH HYPOXIA Status: Acute Current Visit: No (5) Dyslipidemia SNOMED Code(s): 062209643 ICD Code: E78.5 - HYPERLIPIDEMIA, UNSPECIFIED Status: Acute Current Visit: No (6) HTN (hypertension) SNOMED Code(s): 46233258 ICD Code: I10 - ESSENTIAL (PRIMARY) HYPERTENSION Status: Acute Current Visit: No Qualifiers: Hypertension type: unspecified Qualified Code(s): I10 - Essential (primary) hypertension (7) Prediabetes SNOMED Code(s): 006715835 ICD Code: R73.03 - PREDIABETES Status: Acute Current Visit: No (8) CKD (chronic kidney disease) stage 4, GFR 15-29 ml/min SNOMED Code(s): 986172283 ICD Code: N18.4 - CHRONIC KIDNEY DISEASE, STAGE 4 (SEVERE) Status: Chronic Current Visit: No (9) Thrombocytopenia associated with COVID-19 SNOMED Code(s): 208983671 ICD Code: U07.1 - COVID-19; D69.59 - OTHER SECONDARY THROMBOCYTOPENIA Statu s: Acute Current Visit: Yes (10) Hyponatremia SNOMED Code(s): 89643385 ICD Code: E87.1 - HYPO-OSMOLALITY AND HYPONATREMIA Status: Acute Current Visit: Yes (11) Hypochloremia SNOMED Code(s): 73604915 ICD Code: E87.8 - OTH DISORDERS OF ELECTROLYTE AND FLUID BALANCE, NEC Status: Acute Current Visit: Yes (12) Hypoalbuminemia SNOMED Code(s): 997567545 ICD Code: E88.09 - OTH DISORDERS OF PLASMA-PROTEIN METABOLISM, NEC Status: Acute Current Visit: Yes Problem List Initiated/Reviewed/Updated: Yes Assessment/Plan Comment:: ASSESSMENT Discharged today after 3-day hospital stay for refractory hypotension that req uired vasopressors for less than 24 hours Clinically at baseline with complete resolution of symptoms prior to discharge Had an episode of altered mental status associated with dizziness and nausea and vomiting x1 Brought back in by daughter Vital signs Blood pressure 103 4/71 (81), 89% on room air, 77 bpm, temp 100.5 Lab results Platelets 130 Lymphopenia, 960 Sodium 134, chloride 96 GFR stable at 37 CRP up from 15.3 this morning to 19.8 Albumin 2.1 Chest x-ray significantly worse than prior with diffuse increased parenchymal densities PLAN Pneumonia due to COVID-19 virus Acute hypoxemic respiratory failure due to COVID-19 Thrombocytopenia associated with COVID-19 ABG stat CTA chest O2 supplementation as needed Pulse ox cool above 92 Start Remdesivir Start Actemra Start dexamethasone Start convalescent plasma in the morning Repeat labs in a.m. Mild hyponatremia and hypochloremia CKD (chronic kidney disease) stage 4, GFR 15-29 ml/min Monitor urine output Renally dose medications Repeat labs as needed Prediabetes Monitor glucose with daily labs Hypoglycemia protocol Hypertension Hold home BP meds Nausea and vomiting Symptomatic treatment with PRN Zofran Diet as tolerated Dyslipidemia Hold statin for now Hypoalbuminemia Nutritional supplements with meals Dietary consult PROPHYLAXIS DVTLovenox daily GInot indicated CODE STATUS: FULL CODE DISPOSITION: Patient will be fully admitted to medical floor on oxygen mentation, will be s tarted on full treatment regimen for COVID with Remdesivir, dexamethasone and Actemra as well as convalescent plasma. Anticipated length of stay at least 5 days as per Remdesivir length of treatment. - Mortality Measure Prognosis:: Good
[2020-06-02] MEDS ORDERED: Sodium Chloride 0.9% 100 ML IV ONE (18:11)
[2020-06-02] MEDS ORDERED: Iopamidol 755 Mg/ML 100 ML Bottle IVPUSH ONE (18:11)
--- NOTE | 2020-06-02 19:16 | CT ---
CT chest Technique: Multiple axial sections through the chest were obtained. Intravenous contrast was utilized. Findings: Pulmonary arteries are well-opacified. No filling defects are seen to indicate pulmonary embolism. Aorta shows no aneurysm. Mediastinum and hilar regions show no adenopathy. No pericardial fluid is seen. Visualized upper abdominal structures shows previous cholecystectomy. Nothing acute is appreciated. Small hiatal hernia is noted. Lung window settings shows patchy areas of increased density throughout both sides of the chest. Findings presumably due to viral pneumonia given their diffuse nature. No pleural effusions are seen. Bone window settings were reviewed. Scattered degenerative change is seen within the spine. No acute osseous finding is appreciated. Impression: 1. No findings of pulmonary embolism. 2. Patchy areas of increased density within both sides of the chest. Given the multifocal nature of these findings, viral pneumonia is the most likely etiology. Diagnostic code #3 This report was dictated in MDT
[2020-06-02] MEDS: Dexamethasone 4 MG/ML SDV IVPUSH SCH (20:28)
[2020-06-02] MEDS ORDERED: Tocilizumab 400 MG/20 ML SDV IV SCH (21:00)
[2020-06-03] MEDS: Sodium Chloride 0.9% 1,000 ML IV SCH ×2 (03:34→12:28)
--- NOTE | 2020-06-03 09:41 | PCM.PN ---
- General Info Date of Service: 06/03/20 Subjective Update: Slept okay Has not had a bowel movement yet Is tolerating her diet well Denies any nausea, vomiting, diarrhea or constipation Shortness of breath is resolved Feels like she is breathing better, denies cough - Patient Data Vitals - Most Recent: Last Vital Signs Temp 98.4 F 06/03/20 07:24 Pulse 66 06/03/20 07:24 Resp 16 06/03/20 07:24 BP 95/60 06/03/20 07:24 Pulse Ox 93 L 06/03/20 07:24 Weight - Most Recent: 74.208 kg - Exam Quality Assessment: Supplemental Oxygen General: Alert, Oriented, Cooperative, No Acute Distress HEENT: Pupils Equal, Pupils Reactive, EOMI, Mucous Membr. Moist/[place] Neck: Supple, Trachea Midline, No JVD Lungs: Normal Respiratory Effort, Decreased Breath Sounds, Crackles (In both lung syed up to midline, both apices are spared). No: Rales, Rhonchi, Rub, Stridor, Wheezing Cardiovascular: Regular Rate, Regular Rhythm. No: Murmurs, Gallops, Rubs GI/Abdominal Exam: Normal Bowel Sounds, Soft, Non-Tender. No: Distended, Guarding, Rigid, Rebound Back Exam: Normal Inspection. No: CVA Tenderness (L), CVA Tenderness (R), Paraspinal Tenderness, Vertebral Tenderness Extremities: Normal Inspection, Normal Range of Motion, Non-Tender, No Pedal Edema, Normal Capillary Refill Peripheral Pulses: 2+: Radial (L), Radial (R), Dorsalis Pedis (L), Dorsalis Pedis (R) Skin: Warm, Dry, Intact Neurological: No New Focal Deficit Psy/Mental Status: Normal Affect, Normal Mood Sepsis Event Note - Evaluation Sepsis Screening Result: No Definite Risk - Problem List & Annotations (1) Pneumonia due to COVID-19 virus SNOMED Code(s): 802276269 Code(s): U07.1 - COVID-19; J12.89 - OTHER VIRAL PNEUMONIA Status: Acute Current Visit: Yes (2) Syncope and collapse SNOMED Code(s): 757873265 Code(s): R55 - SYNCOPE AND COLLAPSE Status: Acute Current Visit: Yes (3) Acute hypoxemic respiratory failure due to COVID-19 SNOMED Code(s): 722844298 Code(s): U07.1 - COVID-19; J96.01 - ACUTE RESPIRATORY FAILURE WITH HYPOXIA Status: Acute Current Visit: No (4) Dyslipidemia SNOMED Code(s): 773142072 Code(s): E78.5 - HYPERLIPIDEMIA, UNSPECIFIED Status: Acute Current Visit: No (5) HTN (hypertension) SNOMED Code(s): 46660272 Code(s): I10 - ESSENTIAL (PRIMARY) HYPERTENSION Status: Acute Current Visit: No Qualifiers: Hypertension type: unspecified Qualified Code(s): I10 - Essential (primary) hypertension (6) Prediabetes SNOMED Code(s): 877094493 Code(s): R73.03 - PREDIABETES Status: Acute Current Visit: No (7) CKD (chronic kidney disease) stage 4, GFR 15-29 ml/min SNOMED Code(s): 668588957 Code(s): N18.4 - CHRONIC KIDNEY DISEASE, STAGE 4 (SEVERE) Status: Chronic Current Visit: No (8) Thrombocytopenia associated with COVID-19 SNOMED Code(s): 936522261 Code(s): U07.1 - COVID-19; D69.59 - OTHER SECONDARY THROMBOCYTOPENIA Status: Acute Current Visit: Yes (9) Hyponatremia SNOMED Code(s): 18756772 Code(s): E87.1 - HYPO-OSMOLALITY AND HYPONATREMIA Status: Acute Current Visit: Yes (10) Hypochloremia SNOMED Code(s): 53058112 Code(s): E87.8 - OTH DISORDERS OF ELECTROLYTE AND FLUID BALANCE, NEC Status: Acute Current Visit: Yes (11) Hypoalbuminemia SNOMED Code(s): 655031575 Code(s): E88.09 - OTH DISORDERS OF PLASMA-PROTEIN METABOLISM, NEC Status: Acute Current Visit: Yes (12) Nausea and vomiting SNOMED Code(s): 82136777 Code(s): R11.2 - NAUSEA WITH VOMITING, UNSPECIFIED Status: Acute Current Visit: Yes - Problem List Review Problem List Initiated/Reviewed/Updated: Yes - Assessment Assessment:: 06/02/20 Discharged today after 3-day hospital stay for refractory hypotension that required vasopressors for less than 24 hours Clinically at baseline with complete resolution of symptoms prior to discharge Had an episode of altered mental status associated with dizziness and nausea and vomiting x1 Brought back in by daughter Vital signs Blood pressure 103 4/71 (81), 89% on room air, 77 bpm, temp 100.5 Lab results Platelets 130 Lymphopenia, 960 Sodium 134, chloride 96 GFR stable at 37 CRP up from 15.3 this morning to 19.8 Albumin 2.1 Chest x-ray significantly worse than prior with diffuse increased parenchymal densities PLAN ABG stat CTA chest O2 supplementation as needed Pulse ox cool above 92 Start Remdesivir Start Actemra Start dexamethasone Start convalescent plasma in the morning Repeat labs in a.m. Monitor urine output Renally dose medications Repeat labs as needed Monitor glucose with daily labs Hypoglycemia protocol Hold home BP meds Symptomatic treatment with PRN Zofran Diet as tolerated Hold statin for now Nutritional supplements with meals Dietary consult Patient will be fully admitted to medical floor on oxygen mentation, will be started on full treatment regimen for COVID with Remdesivir, dexamethasone and Actemra as well as convalescent plasma. Anticipated length of stay at least 5 days as per Remdesivir length of treatment. 06/02/20 Placed on 2 L via nasal cannula overnight Shortness of breath is improved and denies cough CTA negative for pulmonary embolism but diffuse bilateral patchy infiltrates, likely viral pneumonia No significant change in CRP overnight but patient is clinically improved Vital sign trends Blood pressure: 90070/60-82 T-max: 99.7 Heart rate: 63-82 Pulse ox greater than 89% Lab results Platelets down from 1 30-158 Bands from 2-0 Sodium up from 1 34-1 36 GFR up from 37-41 LDH down from 264-241 CRP down from 19.8-19.5 Troponins negative x2 - Plan Plan:: Pneumonia due to COVID-19 virus Acute hypoxemic respiratory failure due to COVID-19 Thrombocytopenia associated with COVID-19 O2 supplementation as needed Pulse ox goal above 92 Continue Remdesivir, day 2/5 Continue Actemra, dose 1/2 Continue dexamethasone, day 2/10 Start convalescent plasma today Repeat labs in a.m. Start incentive spirometer Out of bed and up to chair as tolerated CKD (chronic kidney disease) stage 4, GFR 15-29 ml/min Monitor urine output Renally dose medications Repeat labs as needed Prediabetes Monitor glucose with daily labs Hypoglycemia protocol Hypertension Continue to hold home BP meds Nausea and vomiting Symptomatic treatment with PRN Zofran Diet as tolerated Dyslipidemia Hold statin for now Hypoalbuminemia Nutritional supplements with meals Dietary consult Mild hyponatremia and hypochloremia, resolved PROPHYLAXIS DVTLovenox daily GInot indicated CODE STATUS: FULL CODE DISPOSITION: Patient will remain admitted to the medical floor oxygen supplementation, Remdesivir, Actemra, dexamethasone and convalescent plasma. Anticipated length of stay at least 5 days as per Remdesivir length of treatment.
[2020-06-03] MEDS: Enoxaparin 40 MG/0.4 ML Syringe SUBCUT SCH (09:48)
[2020-06-03] MEDS ORDERED: Sodium Chloride 0.9% 250 ML IV SCH (11:30)
[2020-06-03] MEDS ORDERED: hydrALAZINE 20 MG/ML SDV IVPUSH PRN (11:58)
[2020-06-03] MEDS ORDERED: 50% Dextrose in Water 50 ML Syringe IVPUSH PRN (11:58)
[2020-06-03] MEDS: REMDESIVIR 100 MG in Sodium Chloride 0.9% 100 ML IV SCH (18:21)
[2020-06-03] MEDS: Dexamethasone 4 MG/ML SDV IVPUSH SCH (18:22)
[2020-06-04] MEDS: Sodium Chloride 0.9% 1,000 ML IV SCH ×2 (00:54→09:44)
--- NOTE | 2020-06-04 09:30 | PCM.PN ---
- General Info Date of Service: 06/04/20 Subjective Update: Feeling okay Slept through the night Shortness of breath is greatly improved Tolerating diet Had a bowel movement this morning - Patient Data Vitals - Most Recent: Last Vital Signs Temp 97.9 F 06/04/20 07:52 Pulse 64 06/04/20 07:52 Resp 20 06/04/20 07:52 BP 126/75 06/04/20 07:52 Pulse Ox 91 L 06/04/20 07:52 Weight - Most Recent: 75.659 kg - Exam Quality Assessment: Supplemental Oxygen General: Alert, Oriented, Cooperative, No Acute Distress HEENT: Pupils Equal, Pupils Reactive, EOMI, Mucous Membr. Moist/[place] Neck: Supple, Trachea Midline, No JVD, No Thyromegaly. No: Lymphadenopathy Lungs: Clear to Auscultation, Normal Respiratory Effort, Crackles (Interval improvement, crackles are only heard at bases of lungs). No: Rales, Rhonchi, Rub, Stridor, Wheezing Cardiovascular: Regular Rate, Regular Rhythm. No: Murmurs, Gallops, Rubs GI/Abdominal Exam: Normal Bowel Sounds, Soft, Non-Tender Back Exam: Normal Inspection. No: CVA Tenderness (L), CVA Tenderness (R) Extremities: Normal Inspection, Normal Range of Motion, Non-Tender, No Pedal Edema, Normal Capillary Refill Peripheral Pulses: 2+: Radial (L), Radial (R), Dorsalis Pedis (L), Dorsalis Pedis (R) Skin: Warm, Dry, Intact Neurological: No New Focal Deficit Psy/Mental Status: Normal Affect, Normal Mood Sepsis Event Note - Evaluation Sepsis Screening Result: No Definite Risk - Problem List & Annotations (1) Pneumonia due to COVID-19 virus SNOMED Code(s): 260749136 Code(s): U07.1 - COVID-19; J12.89 - OTHER VIRAL PNEUMONIA Status: Acute Current Visit: Yes (2) Syncope and collapse SNOMED Code(s): 186442050 Code(s): R55 - SYNCOPE AND COLLAPSE Status: Acute Current Visit: Yes (3) Acute hypoxemic respiratory failure due to COVID-19 SNOMED Code(s): 128534514 Code(s): U07.1 - COVID-19; J96.01 - ACUTE RESPIRATORY FAILURE WITH HYPOXIA Status: Acute Current Visit: No (4) Dyslipidemia SNOMED Code(s): 224765359 Code(s): E78.5 - HYPERLIPIDEMIA, UNSPECIFIED Status: Acute Current Visit: No (5) HTN (hypertension) SNOMED Code(s): 44134011 Code(s): I10 - ESSENTIAL (PRIMARY) HYPERTENSION Status: Acute Current Visit: No Qualifiers: Hypertension type: unspecified Qualified Code(s): I10 - Essential (primary) hypertension (6) Prediabetes SNOMED Code(s): 747431279 Code(s): R73.03 - PREDIABETES Status: Acute Current Visit: No (7) CKD (chronic kidney disease) stage 4, GFR 15-29 ml/min SNOMED Code(s): 795531276 Code(s): N18.4 - CHRONIC KIDNEY DISEASE, STAGE 4 (SEVERE) Status: Chronic Current Visit: No (8) Thrombocytopenia associated with COVID-19 SNOMED Code(s): 278449981 Code(s): U07.1 - COVID-19; D69.59 - OTHER SECONDARY THROMBOCYTOPENIA Status: Acute Current Visit: Yes (9) Hyponatremia SNOMED Code(s): 29496024 Code(s): E87.1 - HYPO-OSMOLALITY AND HYPONATREMIA Status: Acute Current Visit: Yes (10) Hypochloremia SNOMED Code(s): 76785382 Code(s): E87.8 - OTH DISORDERS OF ELECTROLYTE AND FLUID BALANCE, NEC Status: Acute Current Visit: Yes (11) Hypoalbuminemia SNOMED Code(s): 385194083 Code(s): E88.09 - OTH DISORDERS OF PLASMA-PROTEIN METABOLISM, NEC Status: Acute Current Visit: Yes (12) Nausea and vomiting SNOMED Code(s): 47288603 Code(s): R11.2 - NAUSEA WITH VOMITING, UNSPECIFIED Status: Acute Current Visit: Yes - Problem List Review Problem List Initiated/Reviewed/Updated: Yes - Assessment Assessment:: 06/02/20 Discharged today after 3-day hospital stay for refractory hypotension that required vasopressors for less than 24 hours Clinically at baseline with complete resolution of symptoms prior to discharge Had an episode of altered mental status associated with dizziness and nausea and vomiting x1 Brought back in by daughter Vital signs Blood pressure 103 4/71 (81), 89% on room air, 77 bpm, temp 100.5 Lab results Platelets 130 Lymphopenia, 960 Sodium 134, chloride 96 GFR stable at 37 CRP up from 15.3 this morning to 19.8 Albumin 2.1 Chest x-ray significantly worse than prior with diffuse increased parenchymal densities PLAN ABG stat CTA chest O2 supplementation as needed Pulse ox cool above 92 Start Remdesivir Start Actemra Start dexamethasone Start convalescent plasma in the morning Repeat labs in a.m. Monitor urine output Renally dose medications Repeat labs as needed Monitor glucose with daily labs Hypoglycemia protocol Hold home BP meds Symptomatic treatment with PRN Zofran Diet as tolerated Hold statin for now Nutritional supplements with meals Dietary consult Patient will be fully admitted to medical floor on oxygen mentation, will be started on full treatment regimen for COVID with Remdesivir, dexamethasone and Actemra as well as convalescent plasma. Anticipated length of stay at least 5 days as per Remdesivir length of treatment. 06/03/20 Placed on 2 L via nasal cannula overnight Shortness of breath is improved and denies cough CTA negative for pulmonary embolism but diffuse bilateral patchy infiltrates, likely viral pneumonia No significant change in CRP overnight but patient is clinically improved Vital sign trends Blood pressure: 65869/60-82 T-max: 99.7 Heart rate: 63-82 Pulse ox greater than 89% Lab results Platelets down from 1 30-158 Bands from 2-0 Sodium up from 1 34-1 36 GFR up from 37-41 LDH down from 264-241 CRP down from 19.8-19.5 Troponins negative x2 PLAN O2 supplementation as needed Pulse ox goal above 92 Continue Remdesivir, day 2/5 Continue Actemra, dose 1/2 Continue dexamethasone, day 210 Start convalescent plasma today Repeat labs in a.m. Start incentive spirometer Out of bed and up to chair as tolerated Monitor urine output Renally dose medications Repeat labs as needed Monitor glucose with daily labs Hypoglycemia protocol Continue to hold home BP meds Symptomatic treatment with PRN Zofran Diet as tolerated Hold statin for now Nutritional supplements with meals Dietary consult Patient will remain admitted to the medical floor oxygen supplementation, Remdesivir, Actemra, dexamethasone and convalescent plasma. Anticipated length of stay at least 5 days as per Remdesivir length of treatment. 06/04/20 Patient clinically improved still on 2 L nasal cannula Walked around the room today Is tolerating her diet and eating well Lung sounds are okay and crackles are now only in the bases of her lungs Inflammatory markers are trending down Overall improvement is significant from yesterday Vital sign trends Blood pressure: 58496/60-82 T-max: 98.4 Heart rate: 63-70 Pulse ox greater than 92 % Intake and output Urine output 4600 24-hour balance -748 Balance is admission -170 Lab results Platelets up from 115-157 Sodium up from 136-146 Chloride up from 100-111 GFR up from 41-45 Magnesium up from 2.3-2.6 CRP down from 19.5-12 - Plan Plan:: Pneumonia due to COVID-19 virus Acute hypoxemic respiratory failure due to COVID-19 Thrombocytopenia associated with COVID-19 O2 supplementation as needed Pulse ox goal above 92 Continue Remdesivir, day 3/5 Continue Actemra, dose 2/2 Continue dexamethasone, day 11/29 Start convalescent plasma today Repeat labs in a.m. Continue incentive spirometer Out of bed and up to chair as tolerated CKD (chronic kidney disease) stage 4, GFR 15-29 ml/min Monitor urine output Renally dose medications Repeat labs as needed Prediabetes Monitor glucose with daily labs Hypoglycemia protocol Hypertension Continue to hold home BP meds Nausea and vomiting Symptomatic treatment with PRN Zofran Diet as tolerated Dyslipidemia Hold statin for now Hypoalbuminemia Nutritional supplements with meals Dietary consult Mild hyponatremia and hypochloremia, resolved PROPHYLAXIS DVTLovenox daily GInot indicated CODE STATUS: FULL CODE DISPOSITION: Patient will remain admitted to the medical floor oxygen supplementation, Remdesivir, Actemra, dexamethasone and convalescent plasma. Anticipated length of stay at least 3 more days as per Remdesivir length of treatment.
[2020-06-04] MEDS: Enoxaparin 40 MG/0.4 ML Syringe SUBCUT SCH (09:44)
[2020-06-04] MEDS: Dexamethasone 4 MG/ML SDV IVPUSH SCH (17:58)
[2020-06-04] MEDS: REMDESIVIR 100 MG in Sodium Chloride 0.9% 100 ML IV SCH (17:59)
[2020-06-04] MEDS ORDERED: diphenhydrAMINE 50 MG/ML SDV IVPUSH ONE (23:53)
[2020-06-05] MEDS: Enoxaparin 40 MG/0.4 ML Syringe SUBCUT SCH (09:08)
[2020-06-05] MEDS ORDERED: Dextrose 5% in Water 1,000 ML IV SCH (09:45)
--- NOTE | 2020-06-05 14:16 | PCM.PN ---
- General Info Date of Service: 06/05/20 Admission Dx/Problem (Free Text): Admission Diagnosis/Problem Admission Diagnosis/Problem Viral pneumonia Subjective Update: Patient continues to improve. She denies any shortness of breath, fever, chest pain, nausea, vomiting, or any pain. Last bowel movement was a couple of days ago. Functional Status: Reports: Pain Controlled - Review of Systems General: Reports: No Symptoms HEENT: Reports: No Symptoms Pulmonary: Reports: No Symptoms Cardiovascular: Reports: No Symptoms Gastrointestinal: Reports: No Symptoms Musculoskeletal: Reports: No Symptoms - Patient Data Vitals - Most Recent: Last Vital Signs Temp 97.7 F 06/05/20 11:01 Pulse 54 L 06/05/20 11:11 Resp 20 06/05/20 11:01 BP 107/71 06/05/20 11:01 Pulse Ox 92 L 06/05/20 11:11 Weight - Most Recent: 74.752 kg I&O - Last 24 Hours: Intake & Output 06/04/20 06/05/20 06/05/20 22:59 06:59 14:59 Intake Total 1840 1450 300 Output Total 2500 3500 Balance -660 -2050 300 Lab Results Last 24 Hours: Laboratory Results - last 24 hr 06/03/20 06/05/20 06/05/20 Range/Units 05:49 05:21 05:21 WBC 5.88 (3.98-10.04) K/mm3 RBC 4.35 (3.98-5.22) M/mm3 Hgb 12.9 (11.2-15.7) gm/dl Hct 40.0 (34.1-44.9) % MCV 92.0 (79.4-94.8) fl MCH 29.7 (25.6-32.2) pg MCHC 32.3 (32.2-35.5) g/dl RDW Std Deviation 47.5 H (36.4-46.3) fL Plt Count 169 L (182-369) K/mm3 MPV 11.7 (9.4-12.3) fl Neutrophils % (Manual) 78 H (40-60) % Band Neutrophils % 0 (0-10) % Lymphocytes % (Manual) 16 L (20-40) % Atypical Lymphs % 0 % Monocytes % (Manual) 6 (2-10) % Eosinophils % (Manual) 0 L (0.7-5.8) % Basophils % (Manual) 0 L (0.1-1.2) Platelet Estimate Adequate Anisocytosis 2+ moderate Microcytosis 1+ slight RBC Morph Comment Abnormal Sodium 148 H (136-145) mEq/L Potassium 4.2 (3.5-5.1) mEq/L Chloride 112 H (98-107) mEq/L Carbon Dioxide 28 (21-32) mEq/L Anion Gap 12.2 (5-15) BUN 16 (7-18) mg/dL Creatinine 1.2 H (0.55-1.02) mg/dL Est Cr Clr Drug Dosing 40.38 mL/min Estimated GFR (MDRD) 45 (>60) mL/min BUN/Creatinine Ratio 13.3 L (14-18) Glucose 129 H (80-115) mg/dL Calcium 8.4 L (8.5-10.1) mg/dL Phosphorus 3.5 (2.6-4.7) mg/dL Magnesium 2.6 H (1.8-2.4) mg/dl Ferritin (8-252) ng/ml Lactate Dehydrogenase 254 H (81-234) U/L C-Reactive Protein 6.2 H* (<1.0) mg/dL NT-Pro-B Natriuret Pep (0-125) pg/mL Blood Type O POSITIVE 06/05/20 06/05/20 Range/Units 05:21 05:21 WBC (3.98-10.04) K/mm3 RBC (3.98-5.22) M/mm3 Hgb (11.2-15.7) gm/dl Hct (34.1-44.9) % MCV (79.4-94.8) fl MCH (25.6-32.2) pg MCHC (32.2-35.5) g/dl RDW Std Deviation (36.4-46.3) fL Plt Count (182-369) K/mm3 MPV (9.4-12.3) fl Neutrophils % (Manual) (40-60) % Band Neutrophils % (0-10) % Lymphocytes % (Manual) (20-40) % Atypical Lymphs % % Monocytes % (Manual) (2-10) % Eosinophils % (Manual) (0.7-5.8) % Basophils % (Manual) (0.1-1.2) Platelet Estimate Anisocytosis Microcytosis RBC Morph Comment Sodium (136-145) mEq/L Potassium (3.5-5.1) mEq/L Chloride (98-107) mEq/L Carbon Dioxide (21-32) mEq/L Anion Gap (5-15) BUN (7-18) mg/dL Creatinine (0.55-1.02) mg/dL Est Cr Clr Drug Dosing mL/min Estimated GFR (MDRD) (>60) mL/min BUN/Creatinine Ratio (14-18) Glucose (80-115) mg/dL Calcium (8.5-10.1) mg/dL Phosphorus (2.6-4.7) mg/dL Magnesium (1.8-2.4) mg/dl Ferritin 161 (8-252) ng/ml Lactate Dehydrogenase (81-234) U/L C-Reactive Protein (<1.0) mg/dL NT-Pro-B Natriuret Pep 1477 H (0-125) pg/mL Blood Type Med Orders - Current: Current Medications Acetaminophen (Tylenol) 650 mg PO Q4H PRN PRN Reason: Pain (Mild 1-3)/fever Dexamethasone (Dexamethasone) 6 mg IVPUSH Q24H [facility] Last Admin: 06/04/20 17:58 Dose: 6 mg Documented by: Dextrose/Water (Dextrose 50% In Water) 50 ml IVPUSH ASDIRECTED PRN PRN Reason: Hypoglycemia Enoxaparin Sodium (Lovenox) 40 mg SUBCUT DAILY [facility] Last Admin: 06/05/20 09:08 Dose: 40 mg Documented by: Hydralazine HCl (Apresoline) 10 mg IVPUSH Q2H PRN PRN Reason: Hypertension Remdesivir 100 mg/ Sodium (Chloride) 100 mls @ 100 mls/hr IV Q24H [facility] Stop: 06/06/20 18:59 Last Admin: 06/04/20 17:59 Dose: 100 mls/hr Documented by: Dextrose/Water (Dextrose 5% In Water) 1,000 mls @ 75 mls/hr IV ASDIRECTED [facility] Last Admin: 06/05/20 11:08 Dose: 75 mls/hr Documented by: Ondansetron HCl (Zofran Odt) 4 mg PO Q6H PRN PRN Reason: nausea, able to take PO Ondansetron HCl (Zofran) 4 mg IV Q6H PRN PRN Reason: Nausea/Vomiting Sodium Chloride (Saline Flush) 10 ml FLUSH ASDIRECTED PRN PRN Reason: Keep Vein Open Last Admin: 06/02/20 16:40 Dose: 10 ml Documented by: Discontinued Medications Acetaminophen (Tylenol) 975 mg PO NOW ONE Stop: 06/02/20 16:12 Last Admin: 06/02/20 16:40 Dose: 975 mg Documented by: Diphenhydramine HCl (Benadryl) 50 mg IVPUSH ONETIME ONE Stop: 06/04/20 23:54 Last Admin: 06/05/20 00:22 Dose: 50 mg Documented by: Sodium Chloride (Normal Saline) 1,000 mls @ 125 mls/hr IV ASDIRECTED [facility]ARGARITO Last Admin: 06/04/20 09:44 Dose: 125 mls/hr Documented by: Remdesivir 200 mg/ Sodium (Chloride) 250 mls @ 250 mls/hr IV ONETIME STA Stop: 06/02/20 17:41 Last Admin: 06/02/20 18:38 Dose: 250 mls/hr Documented by: Tocilizumab 800 mg/ Sodium (Chloride) 100 mls @ 100 mls/hr IV Q12H [facility] Stop: 06/03/20 09:59 Last Admin: 06/02/20 23:10 Dose: Not Given Documented by: Sodium Chloride (Normal Saline) 100 mls @ 4 mls/sec IV ONETIME ONE Stop: 06/02/20 18:12 Last Admin: 06/02/20 19:04 Dose: 4 mls/sec Documented by: Tocilizumab 800 mg/ Sodium (Chloride) 100 mls @ 100 mls/hr IV Q12H [facility] Stop: 06/03/20 10:59 Last Admin: 06/03/20 09:47 Dose: 100 mls/hr Documented by: Sodium Chloride (Normal Saline) 250 mls @ 20 mls/hr IV ASDIRECTED MARGARITO Iopamidol (Isovue-370 (76%)) 100 ml IVPUSH ONETIME ONE Stop: 06/02/20 18:12 Last Admin: 06/02/20 19:04 Dose: 100 ml Documented by: Tocilizumab (Actemra) 800 mg IV Q12HR [facility] Stop: 06/03/20 09:01 - Exam Quality Assessment: Supplemental Oxygen General: Alert, Oriented HEENT: Pupils Equal, Mucous Membr. Moist/[place] Neck: Supple Lungs: Normal Respiratory Effort, Crackles Cardiovascular: Regular Rate, Regular Rhythm GI/Abdominal Exam: Normal Bowel Sounds, Soft, Non-Tender, No Distention Extremities: Normal Inspection, Normal Range of Motion, Non-Tender, No Pedal Edema, Normal Capillary Refill Skin: Warm, Dry, Intact Psy/Mental Status: Alert, Normal Affect, Normal Mood Sepsis Event Note - Evaluation Sepsis Screening Result: No Definite Risk - Focused Exam Vital Signs: Vital Signs Temp Pulse Resp BP Pulse Ox 06/05/20 11:11 54 L 92 L 06/05/20 11:01 97.7 F 55 L 20 107/71 95 06/05/20 07:15 98.4 F 57 L 20 105/43 L 93 L 06/05/20 05:20 97.9 F 52 L 18 124/76 92 L - Problem List & Annotations (1) Hypernatremia SNOMED Code(s): 085207521 Code(s): E87.0 - HYPEROSMOLALITY AND HYPERNATREMIA Status: Acute Current Visit: Yes (2) COVID-19 SNOMED Code(s): 774314310 Code(s): U07.1 - COVID-19 Status: Acute Current Visit: Yes (3) Nausea and vomiting SNOMED Code(s): 71266258 Code(s): R11.2 - NAUSEA WITH VOMITING, UNSPECIFIED Status: Acute Current Visit: Yes (4) Pneumonia due to COVID-19 virus SNOMED Code(s): 080263613 Code(s): U07.1 - COVID-19; J12.89 - OTHER VIRAL PNEUMONIA Status: Acute Current Visit: Yes (5) Syncope and collapse SNOMED Code(s): 479764539 Code(s): R55 - SYNCOPE AND COLLAPSE Status: Acute Current Visit: Yes (6) Acute hypoxemic respiratory failure due to COVID-19 SNOMED Code(s): 102304143 Code(s): U07.1 - COVID-19; J96.01 - ACUTE RESPIRATORY FAILURE WITH HYPOXIA Status: Acute Current Visit: No (7) Acute kidney injury SNOMED Code(s): 15352092, 91228458 Code(s): N17.9 - ACUTE KIDNEY FAILURE, UNSPECIFIED Status: Acute Current Visit: No (8) HTN (hypertension) SNOMED Code(s): 79742898 Code(s): I10 - ESSENTIAL (PRIMARY) HYPERTENSION Status: Acute Current Visit: No Qualifiers: Hypertension type: unspecified Qualified Code(s): I10 - Essential (primary) hypertension - Problem List Review Problem List Initiated/Reviewed/Updated: Yes - My Orders Last 24 Hours: My Active Orders 06/05/20 09:45 Dextrose 5% in Water 1,000 ml IV ASDIRECTED 06/06/20 05:11 C-REACTIVE PROTEIN [CHEM] AM CBC WITH AUTO DIFF [HEME] AM CMP [COMPREHENSIVE METABOLIC PN,CMP] [CHEM] AM MAGNESIUM [CHEM] AM PHOSPHORUS [CHEM] AM 06/07/20 05:11 C-REACTIVE PROTEIN [CHEM] AM CBC WITH AUTO DIFF [HEME] AM CMP [COMPREHENSIVE METABOLIC PN,CMP] [CHEM] AM MAGNESIUM [CHEM] AM PHOSPHORUS [CHEM] AM 06/08/20 05:11 C-REACTIVE PROTEIN [CHEM] AM CBC WITH AUTO DIFF [HEME] AM CMP [COMPREHENSIVE METABOLIC PN,CMP] [CHEM] AM MAGNESIUM [CHEM] AM PHOSPHORUS [CHEM] AM 06/09/20 05:11 C-REACTIVE PROTEIN [CHEM] AM CBC WITH AUTO DIFF [HEME] AM CMP [COMPREHENSIVE METABOLIC PN,CMP] [CHEM] AM MAGNESIUM [CHEM] AM PHOSPHORUS [CHEM] AM 06/10/20 05:11 C-REACTIVE PROTEIN [CHEM] AM - Assessment Assessment:: 06/02/20 Discharged today after 3-day hospital stay for refractory hypotension that required vasopressors for less than 24 hours Clinically at baseline with complete resolution of symptoms prior to discharge Had an episode of altered mental status associated with dizziness and nausea and vomiting x1 Brought back in by daughter Vital signs Blood pressure 103 4/71 (81), 89% on room air, 77 bpm, temp 100.5 Lab results Platelets 130 Lymphopenia, 960 Sodium 134, chloride 96 GFR stable at 37 CRP up from 15.3 this morning to 19.8 Albumin 2.1 Chest x-ray significantly worse than prior with diffuse increased parenchymal densities PLAN ABG stat CTA chest O2 supplementation as needed Pulse ox cool above 92 Start Remdesivir Start Actemra Start dexamethasone Start convalescent plasma in the morning Repeat labs in a.m. Monitor urine output Renally dose medications Repeat labs as needed Monitor glucose with daily labs Hypoglycemia protocol Hold home BP meds Symptomatic treatment with PRN Zofran Diet as tolerated Hold statin for now Nutritional supplements with meals Dietary consult Patient will be fully admitted to medical floor on oxygen mentation, will be started on full treatment regimen for COVID with Remdesivir, dexamethasone and Actemra as well as convalescent plasma. Anticipated length of stay at least 5 days as per Remdesivir length of treatment. 06/03/20 Placed on 2 L via nasal cannula overnight Shortness of breath is improved and denies cough CTA negative for pulmonary embolism but diffuse bilateral patchy infiltrates, likely viral pneumonia No significant change in CRP overnight but patient is clinically improved Vital sign trends Blood pressure: 47322/60-82 T-max: 99.7 Heart rate: 63-82 Pulse ox greater than 89% Lab results Platelets down from 1 30-158 Bands from 2-0 Sodium up from 1 34-1 36 GFR up from 37-41 LDH down from 264-241 CRP down from 19.8-19.5 Troponins negative x2 PLAN O2 supplementation as needed Pulse ox goal above 92 Continue Remdesivir, day 2/ Continue Actemra, dose 1/2 Continue dexamethasone, day 11/01 Start convalescent plasma today Repeat labs in a.m. Start incentive spirometer Out of bed and up to chair as tolerated Monitor urine output Renally dose medications Repeat labs as needed Monitor glucose with daily labs Hypoglycemia protocol Continue to hold home BP meds Symptomatic treatment with PRN Zofran Diet as tolerated Hold statin for now Nutritional supplements with meals Dietary consult Patient will remain admitted to the medical floor oxygen supplementation, Remdesivir, Actemra, dexamethasone and convalescent plasma. Anticipated length of stay at least 5 days as per Remdesivir length of treatment. 06/04/20 Patient clinically improved still on 2 L nasal cannula Walked around the room today Is tolerating her diet and eating well Lung sounds are okay and crackles are now only in the bases of her lungs Inflammatory markers are trending down Overall improvement is significant from yesterday Vital sign trends Blood pressure: 05104/60-82 T-max: 98.4 Heart rate: 63-70 Pulse ox greater than 92 % Intake and output Urine output 4600 24-hour balance -748 Balance is admission -170 Lab results Platelets up from 115-157 Sodium up from 136-146 Chloride up from 100-111 GFR up from 41-45 Magnesium up from 2.3-2.6 CRP down from 19.5-12 06/05/2020 Tete continues to improve. She is now on 1 to 2 L nasal cannula with sats in the 90s. Appetite is improving and she is tolerating diet. Inflammatory markers continue to decrease. CRP 6.2 Vital signs are stable Patient continues on negative fluid balance of just over 2000 mL since admission. Sodium increased to 148 Renal function much improved, creatinine 1.2, estimated GFR 45 - Plan Plan:: Pneumonia due to COVID-19 virus Acute hypoxemic respiratory failure due to COVID-19 Thrombocytopenia associated with COVID-19 O2 supplementation as needed. Continue to wean Pulse ox goal above 92 Continue Remdesivir, day 4/5 Continue Actemra, dose 2/2 Continue dexamethasone, day / Convalescent plasma given Repeat labs in a.m. Continue incentive spirometer Out of bed and up to chair as tolerated CKD (chronic kidney disease) stage 3 Hypernatremia Monitor urine output Renally dose medications Repeat labs as needed -D5 W at 75 mL an hour for 500 mL total Prediabetes Monitor glucose with daily labs Hypoglycemia protocol Hypertension Continue to hold home BP meds Nausea and vomiting -resolved Symptomatic treatment with PRN Zofran Diet as tolerated Dyslipidemia -Restart statin Hypoalbuminemia Nutritional supplements with meals Dietary consult PROPHYLAXIS DVTLovenox daily GInot indicated CODE STATUS: FULL CODE DISPOSITION: Patient will remain admitted to the medical floor oxygen supplementation, Remdesivir, Actemra, dexamethasone and convalescent plasma. Anticipated length of stay at least 3 more days as per Remdesivir length of treatment. Length of stay greater than 96 hours secondary to continued hypoxemia.
[2020-06-05] MEDS: REMDESIVIR 100 MG in Sodium Chloride 0.9% 100 ML IV SCH (18:16)
[2020-06-05] MEDS: Dexamethasone 4 MG/ML SDV IVPUSH SCH (18:16)
[2020-06-06] MEDS: Rosuvastatin 10 MG Tab PO SCH (08:58)
[2020-06-06] MEDS: Enoxaparin 40 MG/0.4 ML Syringe SUBCUT SCH (08:58)
[2020-06-06] MEDS ORDERED: Dextrose 5% in Water 1,000 ML IV SCH (10:30)
--- NOTE | 2020-06-06 15:37 | PCM.PN ---
- General Info Date of Service: 06/06/20 Admission Dx/Problem (Free Text): Admission Diagnosis/Problem Admission Diagnosis/Problem Viral pneumonia Subjective Update: Tete continues to improve. Oxygenation also continues to improve. She is only on 0.5 L nasal cannula. Appetite also has improved and she had a bowel movement yesterday and today. Functional Status: Reports: Pain Controlled - Review of Systems General: Reports: No Symptoms HEENT: Reports: No Symptoms Pulmonary: Reports: No Symptoms Cardiovascular: Reports: No Symptoms Gastrointestinal: Reports: No Symptoms Musculoskeletal: Reports: No Symptoms - Patient Data Vitals - Most Recent: Last Vital Signs Temp 97.7 F 06/06/20 12:31 Pulse 46 L 06/06/20 12:31 Resp 20 06/06/20 12:31 BP 137/76 06/06/20 12:31 Pulse Ox 95 06/06/20 12:31 Weight - Most Recent: 74.389 kg I&O - Last 24 Hours: Intake & Output 06/06/20 06/06/20 06/06/20 06:59 14:59 22:59 Intake Total 2200 1600 Output Total 2000 2100 Balance 200 -500 Lab Results Last 24 Hours: Laboratory Results - last 24 hr 06/06/20 06/06/20 Range/Units 04:50 04:50 WBC 5.67 (3.98-10.04) K/mm3 RBC 4.44 (3.98-5.22) M/mm3 Hgb 12.9 (11.2-15.7) gm/dl Hct 40.4 (34.1-44.9) % MCV 91.0 (79.4-94.8) fl MCH 29.1 (25.6-32.2) pg MCHC 31.9 L (32.2-35.5) g/dl RDW Std Deviation 46.5 H (36.4-46.3) fL Plt Count 179 L (182-369) K/mm3 MPV 11.5 (9.4-12.3) fl Neut % (Auto) 70.5 (34.0-71.1) % Lymph % (Auto) 19.0 L (19.3-51.7) % [place] % (Auto) 7.1 (4.7-12.5) % Eos % (Auto) 0 L (0.7-5.8) Baso % (Auto) 0.2 (0.1-1.2) % Neut # (Auto) 4.00 (1.56-6.13) K/mm3 Lymph # (Auto) 1.08 L (1.18-3.74) K/mm3 [place] # (Auto) 0.40 H (0.24-0.36) K/mm3 Eos # (Auto) 0.00 L (0.04-0.36) K/mm3 Baso # (Auto) 0.01 (0.01-0.08) K/mm3 Manual Slide Review Normal smear Sodium 148 H (136-145) mEq/L Potassium 4.4 (3.5-5.1) mEq/L Chloride 112 H (98-107) mEq/L Carbon Dioxide 28 (21-32) mEq/L Anion Gap 12.4 (5-15) BUN 19 H (7-18) mg/dL Creatinine 1.1 H (0.55-1.02) mg/dL Est Cr Clr Drug Dosing 44.05 mL/min Estimated GFR (MDRD) 49 (>60) mL/min BUN/Creatinine Ratio 17.3 (14-18) Glucose 140 H (80-115) mg/dL Calcium 8.5 (8.5-10.1) mg/dL Phosphorus 4.3 (2.6-4.7) mg/dL Magnesium 2.6 H (1.8-2.4) mg/dl Total Bilirubin 0.5 (0.2-1.0) mg/dL AST 27 (15-37) U/L ALT 32 (14-59) U/L Alkaline Phosphatase 66 (46-116) U/L C-Reactive Protein 4.0 H* (<1.0) mg/dL Total Protein 6.1 L (6.4-8.2) g/dl Albumin 2.7 L (3.4-5.0) g/dl Globulin 3.4 gm/dL Albumin/Globulin Ratio 0.8 L (1-2) Med Orders - Current: Current Medications Acetaminophen (Tylenol) 650 mg PO Q4H PRN PRN Reason: Pain (Mild 1-3)/fever Last Admin: 06/06/20 15:20 Dose: 650 mg Documented by: Dexamethasone (Dexamethasone) 6 mg PO Q24H MARGARITO Stop: 06/11/20 18:01 Dextrose/Water (Dextrose 50% In Water) 50 ml IVPUSH ASDIRECTED PRN PRN Reason: Hypoglycemia Enoxaparin Sodium (Lovenox) 40 mg SUBCUT DAILY [facility] Last Admin: 06/06/20 08:58 Dose: 40 mg Documented by: Hydralazine HCl (Apresoline) 10 mg IVPUSH Q2H PRN PRN Reason: Hypertension Remdesivir 100 mg/ Sodium (Chloride) 100 mls @ 100 mls/hr IV Q24H [facility] Stop: 06/06/20 18:59 Last Admin: 06/05/20 18:16 Dose: 100 mls/hr Documented by: Dextrose/Water (Dextrose 5% In Water) 1,000 mls @ 75 mls/hr IV ASDIRECTED [facility] Last Admin: 06/06/20 10:25 Dose: 75 mls/hr Documented by: Ondansetron HCl (Zofran Odt) 4 mg PO Q6H PRN PRN Reason: nausea, able to take PO Ondansetron HCl (Zofran) 4 mg IV Q6H PRN PRN Reason: Nausea/Vomiting Rosuvastatin Calcium (Crestor) 10 mg PO DAILY [facility] Last Admin: 06/06/20 08:58 Dose: 10 mg Documented by: Sodium Chloride (Saline Flush) 10 ml FLUSH ASDIRECTED PRN PRN Reason: Keep Vein Open Last Admin: 06/02/20 16:40 Dose: 10 ml Documented by: Discontinued Medications Acetaminophen (Tylenol) 975 mg PO NOW ONE Stop: 06/02/20 16:12 Last Admin: 06/02/20 16:40 Dose: 975 mg Documented by: Dexamethasone (Dexamethasone) 6 mg IVPUSH Q24H [facility] Last Admin: 06/05/20 18:16 Dose: 6 mg Documented by: Diphenhydramine HCl (Benadryl) 50 mg IVPUSH ONETIME ONE Stop: 06/04/20 23:54 Last Admin: 06/05/20 00:22 Dose: 50 mg Documented by: Sodium Chloride (Normal Saline) 1,000 mls @ 125 mls/hr IV ASDIRECTED [facility] Last Admin: 06/04/20 09:44 Dose: 125 mls/hr Documented by: Remdesivir 200 mg/ Sodium (Chloride) 250 mls @ 250 mls/hr IV ONETIME STA Stop: 06/02/20 17:41 Last Admin: 06/02/20 18:38 Dose: 250 mls/hr Documented by: Tocilizumab 800 mg/ Sodium (Chloride) 100 mls @ 100 mls/hr IV Q12H [facility] Stop: 06/03/20 09:59 Last Admin: 06/02/20 23:10 Dose: Not Given Documented by: Sodium Chloride (Normal Saline) 100 mls @ 4 mls/sec IV ONETIME ONE Stop: 06/02/20 18:12 Last Admin: 06/02/20 19:04 Dose: 4 mls/sec Documented by: Tocilizumab 800 mg/ Sodium (Chloride) 100 mls @ 100 mls/hr IV Q12H [facility] Stop: 06/03/20 10:59 Last Admin: 06/03/20 09:47 Dose: 100 mls/hr Documented by: Sodium Chloride (Normal Saline) 250 mls @ 20 mls/hr IV ASDIRECTED [facility] Dextrose/Water (Dextrose 5% In Water) 1,000 mls @ 75 mls/hr IV ASDIRECTED [facility] Last Admin: 06/05/20 11:08 Dose: 75 mls/hr Documented by: Iopamidol (Isovue-370 (76%)) 100 ml IVPUSH ONETIME ONE Stop: 06/02/20 18:12 Last Admin: 06/02/20 19:04 Dose: 100 ml Documented by: Tocilizumab (Actemra) 800 mg IV Q12HR [facility] Stop: 06/03/20 09:01 - Exam Quality Assessment: Supplemental Oxygen General: Alert, Oriented HEENT: Pupils Equal, Mucous Membr. Moist/[place] Neck: Supple Lungs: Normal Respiratory Effort, Crackles Cardiovascular: Regular Rate, Regular Rhythm GI/Abdominal Exam: Normal Bowel Sounds, Soft, Non-Tender, No Distention Peripheral Pulses: 1+: Posterior Tibial (L), Posterior Tibial (R), Dorsalis Pedis (L), Dorsalis Pedis (R) Skin: Warm, Dry, Intact Psy/Mental Status: Alert, Normal Affect, Normal Mood Sepsis Event Note - Evaluation Sepsis Screening Result: No Definite Risk - Focused Exam Vital Signs: Vital Signs Temp Pulse Resp BP Pulse Ox Pulse Ox 06/06/20 12:31 97.7 F 46 L 20 137/76 95 06/06/20 10:23 58 L 93 L 06/06/20 09:01 50 L 93 L 06/06/20 09:00 55 L 92 L 06/06/20 08:55 55 L 95 06/06/20 08:47 94 L 06/06/20 07:30 97.9 F 48 L 20 153/91 H 91 L 06/06/20 04:00 94 L - Problem List & Annotations (1) Hypernatremia SNOMED Code(s): 892100571 Code(s): E87.0 - HYPEROSMOLALITY AND HYPERNATREMIA Status: Acute Current Visit: Yes (2) COVID-19 SNOMED Code(s): 904509721 Code(s): U07.1 - COVID-19 Status: Acute Current Visit: Yes (3) Nausea and vomiting SNOMED Code(s): 00399474 Code(s): R11.2 - NAUSEA WITH VOMITING, UNSPECIFIED Status: Acute Current Visit: Yes (4) Pneumonia due to COVID-19 virus SNOMED Code(s): 565353705 Code(s): U07.1 - COVID-19; J12.89 - OTHER VIRAL PNEUMONIA Status: Acute Current Visit: Yes (5) Syncope and collapse SNOMED Code(s): 257553653 Code(s): R55 - SYNCOPE AND COLLAPSE Status: Acute Current Visit: Yes (6) Acute hypoxemic respiratory failure due to COVID-19 SNOMED Code(s): 580444186 Code(s): U07.1 - COVID-19; J96.01 - ACUTE RESPIRATORY FAILURE WITH HYPOXIA Status: Acute Current Visit: No (7) Acute kidney injury SNOMED Code(s): 68707958, 39981974 Code(s): N17.9 - ACUTE KIDNEY FAILURE, UNSPECIFIED Status: Acute Current Visit: No (8) HTN (hypertension) SNOMED Code(s): 93653545 Code(s): I10 - ESSENTIAL (PRIMARY) HYPERTENSION Status: Acute Current Visit: No Qualifiers: Hypertension type: unspecified Qualified Code(s): I10 - Essential (primary) hypertension - Problem List Review Problem List Initiated/Reviewed/Updated: Yes - My Orders Last 24 Hours: My Active Orders 06/06/20 09:00 Rosuvastatin [Crestor] 10 mg PO DAILY 06/06/20 10:03 PT Evaluation and Treatment [CONS] Routine 06/06/20 10:30 Dextrose 5% in Water 1,000 ml IV ASDIRECTED 06/06/20 18:00 dexAMETHasone 6 mg PO Q24H 06/07/20 05:11 C-REACTIVE PROTEIN [CHEM] AM CBC WITH AUTO DIFF [HEME] AM CMP [COMPREHENSIVE METABOLIC PN,CMP] [CHEM] AM MAGNESIUM [CHEM] AM PHOSPHORUS [CHEM] AM 06/08/20 05:11 C-REACTIVE PROTEIN [CHEM] AM CBC WITH AUTO DIFF [HEME] AM CMP [COMPREHENSIVE METABOLIC PN,CMP] [CHEM] AM MAGNESIUM [CHEM] AM PHOSPHORUS [CHEM] AM 06/09/20 05:11 C-REACTIVE PROTEIN [CHEM] AM CBC WITH AUTO DIFF [HEME] AM CMP [COMPREHENSIVE METABOLIC PN,CMP] [CHEM] AM MAGNESIUM [CHEM] AM PHOSPHORUS [CHEM] AM 06/10/20 05:11 C-REACTIVE PROTEIN [CHEM] AM - Assessment Assessment:: 06/02/20 Discharged today after 3-day hospital stay for refractory hypotension that required vasopressors for less than 24 hours Clinically at baseline with complete resolution of symptoms prior to discharge Had an episode of altered mental status associated with dizziness and nausea and vomiting x1 Brought back in by daughter Vital signs Blood pressure 103 4/71 (81), 89% on room air, 77 bpm, temp 100.5 Lab results Platelets 130 Lymphopenia, 960 Sodium 134, chloride 96 GFR stable at 37 CRP up from 15.3 this morning to 19.8 Albumin 2.1 Chest x-ray significantly worse than prior with diffuse increased parenchymal densities PLAN ABG stat CTA chest O2 supplementation as needed Pulse ox cool above 92 Start Remdesivir Start Actemra Start dexamethasone Start convalescent plasma in the morning Repeat labs in a.m. Monitor urine output Renally dose medications Repeat labs as needed Monitor glucose with daily labs Hypoglycemia protocol Hold home BP meds Symptomatic treatment with PRN Zofran Diet as tolerated Hold statin for now Nutritional supplements with meals Dietary consult Patient will be fully admitted to medical floor on oxygen mentation, will be started on full treatment regimen for COVID with Remdesivir, dexamethasone and Actemra as well as convalescent plasma. Anticipated length of stay at least 5 days as per Remdesivir length of treatment. 06/03/20 Placed on 2 L via nasal cannula overnight Shortness of breath is improved and denies cough CTA negative for pulmonary embolism but diffuse bilateral patchy infiltrates, likely viral pneumonia No significant change in CRP overnight but patient is clinically improved Vital sign trends Blood pressure: 60329/60-82 T-max: 99.7 Heart rate: 63-82 Pulse ox greater than 89% Lab results Platelets down from 1 30-158 Bands from 2-0 Sodium up from 1 34-1 36 GFR up from 37-41 LDH down from 264-241 CRP down from 19.8-19.5 Troponins negative x2 PLAN O2 supplementation as needed Pulse ox goal above 92 Continue Remdesivir, day 2 Continue Actemra, dose 1/2 Continue dexamethasone, day 11/01 Start convalescent plasma today Repeat labs in a.m. Start incentive spirometer Out of bed and up to chair as tolerated Monitor urine output Renally dose medications Repeat labs as needed Monitor glucose with daily labs Hypoglycemia protocol Continue to hold home BP meds Symptomatic treatment with PRN Zofran Diet as tolerated Hold statin for now Nutritional supplements with meals Dietary consult Patient will remain admitted to the medical floor oxygen supplementation, Remdesivir, Actemra, dexamethasone and convalescent plasma. Anticipated length of stay at least 5 days as per Remdesivir length of treatment. 06/04/20 Patient clinically improved still on 2 L nasal cannula Walked around the room today Is tolerating her diet and eating well Lung sounds are okay and crackles are now only in the bases of her lungs Inflammatory markers are trending down Overall improvement is significant from yesterday Vital sign trends Blood pressure: 86634/60-82 T-max: 98.4 Heart rate: 63-70 Pulse ox greater than 92 % Intake and output Urine output 4600 24-hour balance -748 Balance is admission -170 Lab results Platelets up from 115-157 Sodium up from 136-146 Chloride up from 100-111 GFR up from 41-45 Magnesium up from 2.3-2.6 CRP down from 19.5-12 06/05/2020 Tete continues to improve. She is now on 1 to 2 L nasal cannula with sats in the 90s. Appetite is improving and she is tolerating diet. Inflammatory markers continue to decrease. CRP 6.2 Vital signs are stable Patient continues on negative fluid balance of just over 2000 mL since admission. Sodium increased to 148 Renal function much improved, creatinine 1.2, estimated GFR 45 06/06/2020 Continued improvement. Oxygen requirement down to 0.5 L nasal cannula. Inflammatory markers continue to improve. CRP down to 4.0. Continues hypernatremic with sodium of 148. Sodium retention may be worsened by dexamethasone. GFR also stable at 49, slightly improved from yesterday. All parameters continue to normalize. Remdesivir, Actemra, and convalescent plasma completed. - Plan Plan:: Pneumonia due to COVID-19 virus Acute hypoxemic respiratory failure due to COVID-19 Thrombocytopenia associated with COVID-19 O2 supplementation as needed. Continue to wean Pulse ox goal above 92 Continue dexamethasone, day 01/29 Repeat labs in a.m. Continue incentive spirometer Out of bed and up to chair as tolerated CKD (chronic kidney disease) stage 3 Hypernatremia Monitor urine output Renally dose medications Repeat labs as needed -D5 W at 75 mL an hour for 500 mL total -Encourage fluids Prediabetes Monitor glucose with daily labs Increased risk for hypoglycemia secondary to dexamethasone Hypertension Continue to hold home BP meds -Hydralazine for severe hypertension. Not needed so far in hospital stay Nausea and vomiting -resolved Symptomatic treatment with PRN Zofran Diet as tolerated Dyslipidemia -Restart statin Hypoalbuminemia Nutritional supplements with meals Dietary consult PROPHYLAXIS DVTLovenox daily GInot indicated CODE STATUS: FULL CODE DISPOSITION: Patient will remain admitted to the medical floor oxygen supplementation, Remdesivir, Actemra, dexamethasone and convalescent plasma. Anticipated length of stay at least 3 more days as per Remdesivir length of treatment. Length of stay greater than 96 hours secondary to continued hypoxemia.
[2020-06-06] MEDS: REMDESIVIR 100 MG in Sodium Chloride 0.9% 100 ML IV SCH (17:59)
[2020-06-06] MEDS ORDERED: Dexamethasone 4 MG Tab PO SCH (18:00)
[2020-06-07] MEDS ORDERED: Magnesium Hydroxide 400 MG/5 ML Susp 30 ML Cup PO ONE (06:30)
[2020-06-07] MEDS: Enoxaparin 40 MG/0.4 ML Syringe SUBCUT SCH (09:22)
[2020-06-07] MEDS: Rosuvastatin 10 MG Tab PO SCH (09:22)
[2020-06-07] MEDS ORDERED: Dexamethasone 4 MG Tab PO SCH (15:30)
--- NOTE | 2020-06-07 15:37 | PCM.DCSUM1 ---
Discharge Summary - Hospital Course HPI Initial Comments: This is a 69-year-old female with past medical history of prediabetes and hypertension who was just discharged from this facility this morning. Patient was admitted for 3 days after a covered diagnosis and refractory hypotension that required vasopressors for about 12 hours. Her hospital course was not complicated and she did not require any oxygen supplementation. Upon interrogation this morning she stated that she felt fine, back to baseline, her physical exam was normal with lung sounds completely clear. Patient was discharged a couple of hours ago and went with her daughter to get some food. Upon arrival to the restaurant patient describes feeling weak and dizzy but mainly nauseous and she vomited once. Around that time she did have an episode of altered mental status with decreased responsiveness. She does not recall this episode at all She does note that she feels a lot worse than she did this morning. Stating that she is a little short of breath, a lot weaker. She denies any chest pain, palpitations, abdominal pain, diarrhea, constipation, fevers, chills. ASSESSMENT Discharged today after 3-day hospital stay for refractory hypotension that required vasopressors for less than 24 hours Clinically at baseline with complete resolution of symptoms prior to discharge Had an episode of altered mental status associated with dizziness and nausea and vomiting x1 Brought back in by daughter Vital signs Blood pressure 103 4/71 (81), 89% on room air, 77 bpm, temp 100.5 Lab results Platelets 130 Lymphopenia, 960 Sodium 134, chloride 96 GFR stable at 37 CRP up from 15.3 this morning to 19.8 Albumin 2.1 Chest x-ray significantly worse than prior with diffuse increased parenchymal densities PLAN Pneumonia due to COVID-19 virus Acute hypoxemic respiratory failure due to COVID-19 Thrombocytopenia associated with COVID-19 ABG stat CTA chest O2 supplementation as needed Pulse ox cool above 92 Start Remdesivir Start Actemra Start dexamethasone Start convalescent plasma in the morning Repeat labs in a.m. Mild hyponatremia and hypochloremia CKD (chronic kidney disease) stage 4, GFR 15-29 ml/min Monitor urine output Renally dose medications Repeat labs as needed Prediabetes Monitor glucose with daily labs Hypoglycemia protocol Hypertension Hold home BP meds Nausea and vomiting Symptomatic treatment with PRN Zofran Diet as tolerated Dyslipidemia Hold statin for now Hypoalbuminemia Nutritional supplements with meals Dietary consult PROPHYLAXIS DVTLovenox daily GInot indicated Diagnosis: Stroke: No - Discharge Data Discharge Date: 06/07/20 Discharge Disposition: Home, Self-Care 01 Condition: Good - Referral to Home Health Primary Care Physician: KEVIN Kaufman - Discharge Diagnosis/Problem(s) (1) Hypernatremia SNOMED Code(s): 072186433 ICD Code: E87.0 - HYPEROSMOLALITY AND HYPERNATREMIA Status: Acute Current Visit: Yes (2) COVID-19 SNOMED Code(s): 444028879 ICD Code: U07.1 - COVID-19 Status: Acute Current Visit: Yes (3) Nausea and vomiting SNOMED Code(s): 97748908 ICD Code: R11.2 - NAUSEA WITH VOMITING, UNSPECIFIED Status: Acute Current Visit: Yes (4) Pneumonia due to COVID-19 virus SNOMED Code(s): 001358310 ICD Code: U07.1 - COVID-19; J12.89 - OTHER VIRAL PNEUMONIA Status: Acute Current Visit: Yes (5) Syncope and collapse SNOMED Code(s): 117722048 ICD Code: R55 - SYNCOPE AND COLLAPSE Status: Acute Current Visit: Yes (6) Acute hypoxemic respiratory failure due to COVID-19 SNOMED Code(s): 534285003 ICD Code: U07.1 - COVID-19; J96.01 - ACUTE RESPIRATORY FAILURE WITH HYPOXIA Status: Acute Current Visit: No (7) Acute kidney injury SNOMED Code(s): 44472083, 62556680 ICD Code: N17.9 - ACUTE KIDNEY FAILURE, UNSPECIFIED Status: Acute Current Visit: No (8) HTN (hypertension) SNOMED Code(s): 61382976 ICD Code: I10 - ESSENTIAL (PRIMARY) HYPERTENSION Status: Acute Current Visit: No Qualifiers: Hypertension type: unspecified Qualified Code(s): I10 - Essential (primary) hypertension - Patient Summary/Data Consults: Consultations 06/06/20 10:03 PT Evaluation and Treatment [CONS] Routine Hospital Course: 06/02/20 Discharged today after 3-day hospital stay for refractory hypotension that required vasopressors for less than 24 hours Clinically at baseline with complete resolution of symptoms prior to discharge Had an episode of altered mental status associated with dizziness and nausea and vomiting x1 Brought back in by daughter Vital signs Blood pressure 103 4/71 (81), 89% on room air, 77 bpm, temp 100.5 Lab results Platelets 130 Lymphopenia, 960 Sodium 134, chloride 96 GFR stable at 37 CRP up from 15.3 this morning to 19.8 Albumin 2.1 Chest x-ray significantly worse than prior with diffuse increased parenchymal densities PLAN ABG stat CTA chest O2 supplementation as needed Pulse ox cool above 92 Start Remdesivir Start Actemra Start dexamethasone Start convalescent plasma in the morning Repeat labs in a.m. Monitor urine output Renally dose medications Repeat labs as needed Monitor glucose with daily labs Hypoglycemia protocol Hold home BP meds Symptomatic treatment with PRN Zofran Diet as tolerated Hold statin for now Nutritional supplements with meals Dietary consult Patient will be fully admitted to medical floor on oxygen mentation, will be started on full treatment regimen for COVID with Remdesivir, dexamethasone and Actemra as well as convalescent plasma. Anticipated length of stay at least 5 days as per Remdesivir length of treatment. 06/03/20 Placed on 2 L via nasal cannula overnight Shortness of breath is improved and denies cough CTA negative for pulmonary embolism but diffuse bilateral patchy infiltrates, likely viral pneumonia No significant change in CRP overnight but patient is clinically improved Vital sign trends Blood pressure: 82586/60-82 T-max: 99.7 Heart rate: 63-82 Pulse ox greater than 89% Lab results Platelets down from 1 30-158 Bands from 2-0 Sodium up from 1 34-1 36 GFR up from 37-41 LDH down from 264-241 CRP down from 19.8-19.5 Troponins negative x2 PLAN O2 supplementation as needed Pulse ox goal above 92 Continue Remdesivir, day 2/5 Continue Actemra, dose 1/2 Continue dexamethasone, day 11/01 Start convalescent plasma today Repeat labs in a.m. Start incentive spirometer Out of bed and up to chair as tolerated Monitor urine output Renally dose medications Repeat labs as needed Monitor glucose with daily labs Hypoglycemia protocol Continue to hold home BP meds Symptomatic treatment with PRN Zofran Diet as tolerated Hold statin for now Nutritional supplements with meals Dietary consult Patient will remain admitted to the medical floor oxygen supplementation, Remdesivir, Actemra, dexamethasone and convalescent plasma. Anticipated length of stay at least 5 days as per Remdesivir length of treatment. 06/04/20 Patient clinically improved still on 2 L nasal cannula Walked around the room today Is tolerating her diet and eating well Lung sounds are okay and crackles are now only in the bases of her lungs Inflammatory markers are trending down Overall improvement is significant from yesterday Vital sign trends Blood pressure: 46206/60-82 T-max: 98.4 Heart rate: 63-70 Pulse ox greater than 92 % Intake and output Urine output 4600 24-hour balance -748 Balance is admission -170 Lab results Platelets up from 115-157 Sodium up from 136-146 Chloride up from 100-111 GFR up from 41-45 Magnesium up from 2.3-2.6 CRP down from 19.5-12 06/05/2020 Tete continues to improve. She is now on 1 to 2 L nasal cannula with sats in the 90s. Appetite is improving and she is tolerating diet. Inflammatory markers continue to decrease. CRP 6.2 Vital signs are stable Patient continues on negative fluid balance of just over 2000 mL since admission. Sodium increased to 148 Renal function much improved, creatinine 1.2, estimated GFR 45 06/06/2020 Continued improvement. Oxygen requirement down to 0.5 L nasal cannula. Inflammatory markers continue to improve. CRP down to 4.0. Continues hypernatremic with sodium of 148. Sodium retention may be worsened by dexamethasone. GFR also stable at 49, slightly improved from yesterday. All parameters continue to normalize. Remdesivir, Actemra, and convalescent plasma completed. 06/07/2020 Continues to improve. She is now off oxygen and maintaining oxygen saturations 91% with activity and 96% at rest. Renal function continues to be stable with a GFR of 41. Inflammatory markers continue to decrease with the CRP of 2.9. She has completed remdesivir, Actemra, and convalescent plasma. Patient is on the sixth day of 10 of dexamethasone. Patient will go home on 4 more days of dexamethasone. - Patient Instructions Diet: Diabetic Diet Driving: Do Not Drive Showering/Bathing: May Shower Other/Special Instructions: Please finish all of the dexamethasone. If you develop worsening shortness of breath return to the hospital. If possible get a pulse oximetry from the pharmacy or [facility] to follow your oxygen over the next several days. Get a blood pressure cuff and check your blood pressure 1 or 2 times per day. You are not going home on your normal blood pressure medications, but will need to review these readings with your primary care provider. Follow-up with your primary care provider in 1 to 2 weeks to review your blood pressure. - Discharge Plan *PRESCRIPTION DRUG MONITORING PROGRAM REVIEWED*: No *COPY OF PRESCRIPTION DRUG MONITORING REPORT IN PATIENT ISI: No Prescriptions/Med Rec: dexAMETHasone [Dexamethasone] 6 mg PO Q24H #4 tablet Home Medications: Home Meds atorvaSTATin [Lipitor] 40 mg PO DAILY 05/06/19 [History] metFORMIN [Glucophage] 500 mg PO DAILY 05/31/20 [History] Acetaminophen [Tylenol] 650 mg PO Q4H PRN #120 tablet 06/02/20 [Rx] dexAMETHasone [Dexamethasone] 6 mg PO Q24H #4 tablet 06/07/20 [Rx] Oxygen Therapy Mode: Room Air Patient Handouts: COVID-19, Sepsis, Diagnosis, Adult, COVID-19: How to Protect Yourself and Others - CDC, Syncope, Prevent the Spread of COVID-19 if You Are Sick - [facility] Referrals: Chrystal Orellana PA-C [Primary Care Provider] - 06/19/20 11:30 am (Please follow up with KEVIN Clifton June 19 at 11:30.) - Discharge Summary/Plan Comment DC Time >30 min.: Yes Discharge Summary/Plan Comment: Discharged home in good condition. Finish 4 more days of dexamethasone. Follow-up with primary care provider in 1 to 2 weeks. - General Info Date of Service: 06/07/20 Admission Dx/Problem (Free Text: Admission Diagnosis/Problem Admission Diagnosis/Problem Viral pneumonia Functional Status: Reports: Pain Controlled - Review of Systems General: Reports: No Symptoms HEENT: Reports: No Symptoms Pulmonary: Reports: No Symptoms Cardiovascular: Reports: No Symptoms Musculoskeletal: Reports: No Symptoms Neurological: Reports: No Symptoms - Patient Data Vitals - Most Recent: Last Vital Signs Temp 98.1 F 06/07/20 13:58 Pulse 62 06/07/20 14:06 Resp 18 06/07/20 13:58 BP 159/81 H 06/07/20 13:58 Pulse Ox 91 L 06/07/20 14:06 Weight - Most Recent: 74.661 kg I&O - Last 24 hours: Intake & Output 06/07/20 06/07/20 06/07/20 06:59 14:59 22:59 Intake Total 3740 320 Output Total 4500 Balance -760 320 Lab Results - Last 24 hrs: Laboratory Results - last 24 hr 06/07/20 06/07/20 Range/Units 04:50 04:50 WBC 7.58 (3.98-10.04) K/mm3 RBC 4.65 (3.98-5.22) M/mm3 Hgb 13.6 (11.2-15.7) gm/dl Hct 42.1 (34.1-44.9) % MCV 90.5 (79.4-94.8) fl MCH 29.2 (25.6-32.2) pg MCHC 32.3 (32.2-35.5) g/dl RDW Std Deviation 45.7 (36.4-46.3) fL Plt Count 193 (182-369) K/mm3 MPV 11.4 (9.4-12.3) fl Neut % (Auto) 71.7 H (34.0-71.1) % Lymph % (Auto) 15.2 L (19.3-51.7) % [place] % (Auto) 8.2 (4.7-12.5) % Eos % (Auto) 0 L (0.7-5.8) Baso % (Auto) 0.4 (0.1-1.2) % Neut # (Auto) 5.44 (1.56-6.13) K/mm3 Lymph # (Auto) 1.15 L (1.18-3.74) K/mm3 [place] # (Auto) 0.62 H (0.24-0.36) K/mm3 Eos # (Auto) 0.00 L (0.04-0.36) K/mm3 Baso # (Auto) 0.03 (0.01-0.08) K/mm3 Manual Slide Review Normal smear Sodium 145 (136-145) mEq/L Potassium 4.3 (3.5-5.1) mEq/L Chloride 109 H (98-107) mEq/L Carbon Dioxide 28 (21-32) mEq/L Anion Gap 12.3 (5-15) BUN 23 H (7-18) mg/dL Creatinine 1.3 H (0.55-1.02) mg/dL Est Cr Clr Drug Dosing 37.27 mL/min Estimated GFR (MDRD) 41 (>60) mL/min BUN/Creatinine Ratio 17.7 (14-18) Glucose 144 H (80-115) mg/dL Calcium 8.2 L (8.5-10.1) mg/dL Phosphorus 4.8 H (2.6-4.7) mg/dL Magnesium 2.6 H (1.8-2.4) mg/dl Total Bilirubin 0.6 (0.2-1.0) mg/dL AST 28 (15-37) U/L ALT 39 (14-59) U/L Alkaline Phosphatase 69 (46-116) U/L C-Reactive Protein 2.9 H* (<1.0) mg/dL Total Protein 6.1 L (6.4-8.2) g/dl Albumin 2.7 L (3.4-5.0) g/dl Globulin 3.4 gm/dL Albumin/Globulin Ratio 0.8 L (1-2) Med Orders - Current: Current Medications Acetaminophen (Tylenol) 650 mg PO Q4H PRN PRN Reason: Pain (Mild 1-3)/fever Last Admin: 06/06/20 15:20 Dose: 650 mg Documented by: Dexamethasone (Dexamethasone) 6 mg PO Q24H [facility] Stop: 06/11/20 15:31 Dextrose/Water (Dextrose 50% In Water) 50 ml IVPUSH ASDIRECTED PRN PRN Reason: Hypoglycemia Enoxaparin Sodium (Lovenox) 40 mg SUBCUT DAILY [facility] Last Admin: 06/07/20 09:22 Dose: 40 mg Documented by: Hydralazine HCl (Apresoline) 10 mg IVPUSH Q2H PRN PRN Reason: Hypertension Ondansetron HCl (Zofran Odt) 4 mg PO Q6H PRN PRN Reason: nausea, able to take PO Ondansetron HCl (Zofran) 4 mg IV Q6H PRN PRN Reason: Nausea/Vomiting Rosuvastatin Calcium (Crestor) 10 mg PO DAILY [facility] Last Admin: 06/07/20 09:22 Dose: 10 mg Documented by: Sodium Chloride (Saline Flush) 10 ml FLUSH ASDIRECTED PRN PRN Reason: Keep Vein Open Last Admin: 06/02/20 16:40 Dose: 10 ml Documented by: Discontinued Medications Acetaminophen (Tylenol) 975 mg PO NOW ONE Stop: 06/02/20 16:12 Last Admin: 06/02/20 16:40 Dose: 975 mg Documented by: Dexamethasone (Dexamethasone) 6 mg IVPUSH Q24H [facility] Last Admin: 06/05/20 18:16 Dose: 6 mg Documented by: Dexamethasone (Dexamethasone) 6 mg PO Q24H [facility] Stop: 06/11/20 18:01 Last Admin: 06/06/20 17:58 Dose: 6 mg Documented by: Diphenhydramine HCl (Benadryl) 50 mg IVPUSH ONETIME ONE Stop: 06/04/20 23:54 Last Admin: 06/05/20 00:22 Dose: 50 mg Documented by: Sodium Chloride (Normal Saline) 1,000 mls @ 125 mls/hr IV ASDIRECTED [facility] Last Admin: 06/04/20 09:44 Dose: 125 mls/hr Documented by: Remdesivir 100 mg/ Sodium (Chloride) 100 mls @ 100 mls/hr IV Q24H [facility] Stop: 06/06/20 18:59 Last Admin: 06/06/20 17:59 Dose: 100 mls/hr Documented by: Remdesivir 200 mg/ Sodium (Chloride) 250 mls @ 250 mls/hr IV ONETIME STA Stop: 06/02/20 17:41 Last Admin: 06/02/20 18:38 Dose: 250 mls/hr Documented by: Tocilizumab 800 mg/ Sodium (Chloride) 100 mls @ 100 mls/hr IV Q12H [facility] Stop: 06/03/20 09:59 Last Admin: 06/02/20 23:10 Dose: Not Given Documented by: Sodium Chloride (Normal Saline) 100 mls @ 4 mls/sec IV ONETIME ONE Stop: 06/02/20 18:12 Last Admin: 06/02/20 19:04 Dose: 4 mls/sec Documented by: Tocilizumab 800 mg/ Sodium (Chloride) 100 mls @ 100 mls/hr IV Q12H [facility] Stop: 06/03/20 10:59 Last Admin: 06/03/20 09:47 Dose: 100 mls/hr Documented by: Sodium Chloride (Normal Saline) 250 mls @ 20 mls/hr IV ASDIRECTED [facility] Dextrose/Water (Dextrose 5% In Water) 1,000 mls @ 75 mls/hr IV ASDIRECTED [facility] Last Admin: 06/05/20 11:08 Dose: 75 mls/hr Documented by: Dextrose/Water (Dextrose 5% In Water) 1,000 mls @ 75 mls/hr IV ASDIRECTED [facility] Last Admin: 06/06/20 10:25 Dose: 75 mls/hr Documented by: Iopamidol (Isovue-370 (76%)) 100 ml IVPUSH ONETIME ONE Stop: 06/02/20 18:12 Last Admin: 06/02/20 19:04 Dose: 100 ml Documented by: Magnesium Hydroxide (Milk Of Magnesia) 30 ml PO ONETIME ONE Stop: 06/07/20 06:31 Last Admin: 06/07/20 06:06 Dose: 30 ml Documented by: Tocilizumab (Actemra) 800 mg IV Q12HR [facility] Stop: 06/03/20 09:01 - Exam Quality Assessment: Denies: Supplemental Oxygen General: Reports: Alert, Oriented HEENT: Reports: Pupils Equal, Mucous Membr. Moist/[place] Neck: Reports: Supple Lungs: Reports: Clear to Auscultation, Normal Respiratory Effort Cardiovascular: Reports: Regular Rate, Regular Rhythm Extremities: Normal Inspection, Normal Range of Motion, Non-Tender, No Pedal Edema, Normal Capillary Refill Psy/Mental Status: Reports: Alert, Normal Affect, Normal Mood
== END 2020-06-07 16:45 | disposition home or self-care (01) | DRG 177 ==
LOC: JD.ED 15:13 → JD.MS 17:40
PROVIDERS: ADMIT Internal Medicine; ATTEND Internal Medicine
PROC: XW033E5 Introduction of Remdesivir Anti-infective into Peripheral Vein, Percutaneous Approach, New Technology Group 5 (ICD-10-PCS; principal; 2020-06-07)
PROC: XW13325 Transfusion of Convalescent Plasma (Nonautologous) into Peripheral Vein, Percutaneous Approach, New Technology Group 5 (ICD-10-PCS; 2020-06-07)
DX: U07.1 COVID-19 (principal); J12.89 Other viral pneumonia; R09.02 Hypoxemia; J96.01 Acute respiratory failure with hypoxia; I10 Essential (primary) hypertension; E11.9 Type 2 diabetes mellitus without complications; E66.9 Obesity, unspecified; Z87.442 Personal history of urinary calculi; Z98.42 Cataract extraction status, left eye; Z98.41 Cataract extraction status, right eye; E87.1 Hypo-osmolality and hyponatremia; Z88.1 Allergy status to other antibiotic agents; Z79.84 Long term (current) use of oral hypoglycemic drugs; Z79.899 Other long term (current) drug therapy; E87.0 Hyperosmolality and hypernatremia; N18.4 Chronic kidney disease, stage 4 (severe); N17.9 Acute kidney failure, unspecified; D69.6 Thrombocytopenia, unspecified; E87.8 Other disorders of electrolyte and fluid balance, not elsewhere classified; R73.03 Prediabetes; E78.5 Hyperlipidemia, unspecified; R11.2 Nausea with vomiting, unspecified; I13.10 Hypertensive heart and chronic kidney disease without heart failure, with stage 1 through stage 4 chronic kidney disease, or unspecified chronic kidney disease; R55 Syncope and collapse; Z90.49 Acquired absence of other specified parts of digestive tract
CPT/HCPCS: 36415; 71045; 80053; 82728; 83615; 83735; 84484; 85025; 85379; 86140; 93005; 94762; 96360; 99285; A9270; J7030; 36430; 36556; 36600; 71275; 71275-26; 80048; 82550; 82803; 83880; 84100; 85007; 85027; 85610; 86900; 86901; 93010; 94761; 97110-GP; 97116-GP; 97162-GP; 99222; 99231; 99232; 99239; J1100; J1200; J1650; J3262; J7050; J7060; J8540; P9017; Q9967